=== PATIENT | male | born 1935 | race Caucasian/White ===

== ENCOUNTER 2018-02-06 09:59 | Emergency (ER) | payer MEDICARE, OTHER ==
[~2018-02-06] VITALS: Ht 180.3 cm; Wt 108.9 kg
[2018-02-06] MEDS ORDERED: NS IV 1000 ML 1,000 ML IV ONE (10:17)
[2018-02-06] MEDS ORDERED: ACETAMINOPHEN 500 MG TAB (TYLENOL) PO PRN (10:30)
[2018-02-06 10:31] LABS: BASOPHILS % (AUTO) 0 % (0-10); EOSINOPHILS % (AUTO) 0 % (0-10); HEMATOCRIT 46 % (40-54); HEMOGLOBIN 15.6 G/DL (13.3-17.7); LYMPHOCYTES # (AUTO) 0.4 X 10^3 (1.0-4.0); LYMPHOCYTES % (AUTO) 4 % (12-44); MEAN CORPUSCULAR HEMOGLOBIN 31 PG (25-34); MEAN CORPUSCULAR HGB CONC 34 G/DL (32-36); MEAN CORPUSCULAR VOLUME 92 FL (80-99); MONOCYTES # (AUTO) 0.6 X 10^3 (0.0-1.0); MONOCYTES % (AUTO) 6 % (0-12); NEUTROPHILS # (AUTO) 9.6 X 10^3 (1.8-7.8); NEUTROPHILS % (AUTO) 90 % (42-75); PLATELET COUNT 153 10^3/uL (130-400); RED BLOOD COUNT 4.99 10^6/uL (4.35-5.85); WHITE BLOOD COUNT 10.6 10^3/uL (4.3-11.0)
--- NOTE | 2018-02-06 10:43 | Diagnostic Imaging Report ---
INDICATION: Fever. COMPARISON: None. FINDINGS: Single view of the chest demonstrates cardiac enlargement with slight central vascular congestion. There is a fullness in the right infrahilar region. There is no focal infiltrate, effusion or pneumothorax. Osseous structures are normal. IMPRESSION: 1. Cardiac enlargement with slight central vascular congestion. 2. Right infrahilar fullness. Followup with two views or CT imaging recommended to exclude underlying mass. Dictated by: Dictated on workstation # [id number]
[2018-02-06 10:44] LABS: INR 1.9 (0.8-1.4); PROTHROMBIN TIME PATIENT 21.9 SEC (12.2-14.7)
[2018-02-06 10:55] LABS: ALANINE AMINOTRANSFERASE 22 U/L (0-55); ALBUMIN 3.9 GM/DL (3.2-4.5); ALKALINE PHOSPHATASE 63 U/L (40-136); BILIRUBIN,TOTAL 1.1 MG/DL (0.1-1.0); BUN/CREATININE RATIO 15; CALCIUM 9.2 MG/DL (8.5-10.1); CARBON DIOXIDE 26 MMOL/L (21-32); CHLORIDE 105 MMOL/L (98-107); CREATININE SERUM 0.81 MG/DL (0.60-1.30); GFR ESTIMATED > 60; GLUCOSE 120 MG/DL (70-105); SODIUM 140 MMOL/L (135-145); TOTAL PROTEIN 6.4 GM/DL (6.4-8.2)
--- NOTE | 2018-02-06 11:16 | ED General ---
General Chief Complaint: -Male Stated Complaint: MEDICATION REACTION Nursing Triage Note: ARRIVED VIA AMB TO ROOM 08 WITH MULTIPLE COMPLAINTS. TODAY SAYS HE HAS A FEVER , SHAKING, AND DOES NOT FEEL WELL. HAS BEEN IN AND OUT OF THE HOSPITAL ER IN [place] AND HAS HAD AN APPT WITH NATALIYA BECAUSE HE HAS BEEN HAVING TROUBLE URINATING. STATES HE HAD A MARCH IN BUT NATALIYA TOOK IT OUT WED. Nursing Sepsis Screen: Possible Sepsis Risk Source of Information: Patient Exam Limitations: No Limitations History of Present Illness Date Seen by Provider: Feb 06, 2018 Time Seen by Provider: 10:10 Initial Comments Here with report of fever, shaking, weakness and difficulty with urination. Apparently he has had March catheter placed and removed earlier this week for urinary retention problems. He has been started on new meds for that. Had shaking and weakness apparently intermittently over the last 2 days with increasing weakness and fever today. No problems with vomiting. Does have history of constipation due to his chronic medications bed has had large bowel movements in the last couple of days. There was some loose stool with the resolution of the constipation. Timing/Duration: 2-3 Days, Getting Worse Severity: Moderate, Severe Associated Systoms: No Chest Pain, No Cough; Fever/Chills; No Nausea/Vomiting, No Shortness of Air; Weakness Allergies and Home Medications Allergies Coded Allergies: pregabalin (Verified Allergy, Unknown, 02/06/18) Patient Home Medication List Home Medication List Reviewed: Yes Review of Systems Constitutional: see HPI; No chills, No fever EENTM: no symptoms reported Respiratory: no symptoms reported Cardiovascular: No chest pain, No edema, No palpitations Gastrointestinal: No abdominal pain; constipation; No nausea, No vomiting Genitourinary: dysuria, hesitancy Musculoskeletal: no symptoms reported Skin: no symptoms reported All Other Systems Reviewed Negative Unless Noted: Yes Past Xggvthu-Bsuwcb-Kdoyye Hx Past Med/Social Hx: Reviewed Nursing Past Med/Soc Hx Patient Social History Alcohol Use: Denies Use Recreational Drug Use: No Smoking Status: Never a Smoker Recent Foreign Travel: No Contact w/Someone Who Travel: No Recent Infectious Disease Expo: No Recent Hopitalizations: No Past Medical History Surgeries: Yes (HERNIA) Bowel Surgery Respiratory: No Cardiac: Yes Hypertension Genitourinary: Yes Prostate Problems Gastrointestinal: No Musculoskeletal: No Endocrine: Yes (HYPOGLYCEMIA) Cancer: No Psychosocial: No Family Medical History Reviewed Nursing Family Hx Physical Exam-Suspected Sepsis Physical Exam Vital Signs Vital Signs - First Documented 02/06/18 10:00 Temp 101.0 Pulse 109 Resp 16 B/P (MAP) 136/96 (109) Pulse Ox 91 O2 Delivery Room Air Capillary Refill : Less Than 3 Seconds Blood Pressure Mean: 109 Height, Weight, BMI Height: 5'11.00" Weight: 240lbs. oz. 108.173613id; BMI Method:Stated General Appearance: No Apparent Distress, WD/WN HEENT: PERRL/EOMI, Pharynx Normal Neck: Non Tender, Supple Respiratory: Lungs Clear, Normal Breath Sounds Cardiovascular: No Murmur, Tachycardia Gastrointestinal: Non Tender, Soft Back: Normal Inspection, No CVA Tenderness, No Vertebral Tenderness Extremity: Normal Capillary Refill, Normal Range of Motion, Non Tender Neurologic/Psychiatric: Alert, Oriented x3 Skin: normal color, warm/dry Focused Exam Lactate Level 02/06/18 10:13: Lactic Acid Level 1.01 Lactic Acid Level Progress/Results/Core Measures Suspected Sepsis Recent Fever Within 48 Hours: Yes Infection Criteria Present: Suspected New Infection New/Unexplained Altered Menta: No Sepsis Screen: Possible Sepsis Risk SIRS Temperature:101.0 Pulse: 109 Respiratory Rate: 16 Laboratory Tests 02/06/18 10:13: White Blood Count 10.6 Blood Pressure 136 /96 Mean: 109 02/06/18 10:13: Lactic Acid Level 1.01 Laboratory Tests 02/06/18 10:13: Creatinine 0.81, INR Comment 1.9H, Platelet Count 153, Total Bilirubin 1.1H Results/Orders Lab Results Laboratory Tests Test 02/06/18 10:13 02/06/18 13:10 Range/Units White Blood Count 10.6 4.3-11.0 10^3/uL Red Blood Count 4.99 4.35-5.85 10^6/uL Hemoglobin 15.6 13.3-17.7 G/DL Hematocrit 46 40-54 % Mean Corpuscular Volume 92 80-99 FL Mean Corpuscular Hemoglobin 31 25-34 PG Mean Corpuscular Hemoglobin Concent 34 32-36 G/DL Red Cell Distribution Width 14.0 10.0-14.5 % Platelet Count 153 130-400 10^3/uL Mean Platelet Volume 11.0 H 7.4-10.4 FL Neutrophils (%) (Auto) 90 H 42-75 % Lymphocytes (%) (Auto) 4 L 12-44 % Monocytes (%) (Auto) 6 0-12 % Eosinophils (%) (Auto) 0 0-10 % Basophils (%) (Auto) 0 0-10 % Neutrophils # (Auto) 9.6 H 1.8-7.8 X 10^3 Lymphocytes # (Auto) 0.4 L 1.0-4.0 X 10^3 Monocytes # (Auto) 0.6 0.0-1.0 X 10^3 Eosinophils # (Auto) 0.0 0.0-0.3 10^3/uL Basophils # (Auto) 0.0 0.0-0.1 10^3/uL Neutrophils % (Manual) 94 % Lymphocytes % (Manual) 2 % Monocytes % (Manual) 4 % Blood Morphology Comment NORMAL Prothrombin Time 21.9 H 12.2-14.7 SEC INR Comment 1.9 H 0.8-1.4 Activated Partial Thromboplast Time 40 H 24-35 SEC Sodium Level 140 135-145 MMOL/L Potassium Level 4.0 3.6-5.0 MMOL/L Chloride Level 105 98-107 MMOL/L Carbon Dioxide Level 26 21-32 MMOL/L Anion Gap 9 5-14 MMOL/L Blood Urea Nitrogen 12 7-18 MG/DL Creatinine 0.81 0.60-1.30 MG/DL Estimat Glomerular Filtration Rate > 60 BUN/Creatinine Ratio 15 Glucose Level 120 H 70-105 MG/DL Lactic Acid Level 1.01 0.50-2.00 MMOL/L Calcium Level 9.2 8.5-10.1 MG/DL Corrected Calcium 9.3 8.5-10.1 MG/DL Total Bilirubin 1.1 H 0.1-1.0 MG/DL Aspartate Amino Transf (AST/SGOT) 22 5-34 U/L Alanine Aminotransferase (ALT/SGPT) 22 0-55 U/L Alkaline Phosphatase 63 40-136 U/L Total Protein 6.4 6.4-8.2 GM/DL Albumin 3.9 3.2-4.5 GM/DL Urine Color YELLOW Urine Clarity SLIGHTLY CLOUDY Urine pH 5 5-9 Urine Specific Peak 1.015 L 1.016-1.022 Urine Protein 2+ H NEGATIVE Urine Glucose (UA) NEGATIVE NEGATIVE Urine Ketones 3+ H NEGATIVE Urine Nitrite NEGATIVE NEGATIVE Urine Bilirubin NEGATIVE NEGATIVE Urine Urobilinogen NORMAL NORMAL MG/DL Urine Leukocyte Esterase 1+ H NEGATIVE Urine RBC (Auto) 3+ H NEGATIVE Urine RBC NONE /HPF Urine WBC 2-5 /HPF Urine Crystals PRESENT H /LPF Urine Amorphous Sediment RARE ROSEY URATES H /LPF Urine Bacteria NEGATIVE /HPF Urine Casts NONE /LPF Urine Mucus NEGATIVE /LPF Urine Culture Indicated NO My Orders Orders - BRIDGER GORMAN MD Cbc With Automated Diff (02/06/18 10:17) Comprehensive Metabolic Panel (02/06/18 10:17) Blood Culture (02/06/18 10:17) Sputum Culture (02/06/18 10:17) Urinalysis (02/06/18 10:17) Urine Culture (02/06/18 10:17) Protime With Inr (02/06/18 10:17) Partial Thromboplastin Time (02/06/18 10:17) Chest 1 View, Ap/Pa Only (02/06/18 10:17) Acetaminophen Tablet (Tylenol Tablet) (02/06/18 10:30) Saline Lock/Iv-Start (02/06/18 10:17) Saline Lock/Iv-Start (02/06/18 10:17) Vital Signs Adult Sepsis Patie Q15M (02/06/18 10:17) O2 (02/06/18 10:17) Remove Rings In Anticipation O (02/06/18 10:17) Lactic Acid Analyzer (02/06/18 10:17) Saline Lock/Iv-Start (02/06/18 10:17) Ns Iv 1000 Ml (Sodium Chloride 0.9%) (02/06/18 10:17) Manual Differential (02/06/18 10:13) Ct Chest W (02/06/18 11:09) Iohexol Injection (Omnipaque 350 Mg/Ml 1 (02/06/18 11:45) Ns (Ivpb) (Sodium Chloride 0.9% Ivpb Bag (02/06/18 11:45) Lidocaine 2% (Urojet) (Xylocaine Urojet) (02/06/18 13:15) Lidocaine 2% (Urojet) (Xylocaine Urojet) (02/06/18 13:01) Ceftriaxone Injection (Rocephin Injectio (02/06/18 14:15) Medications Given in ED Current Medications Medications Dose Ordered Sig/Pavan Route Start Time Stop Time Status Last Admin Dose Admin Acetaminophen 1,000 mg ONCE PRN PO 02/06/18 10:30 02/06/18 10:40 DC 02/06/18 10:39 1,000 MG Iohexol 100 ml ONCE ONCE IV 02/06/18 11:45 02/06/18 11:47 DC 02/06/18 12:12 75 ML Lidocaine HCl 10 ml ONCE ONCE TOP 02/06/18 13:15 02/06/18 13:16 DC 02/06/18 13:00 10 ML Sodium Chloride 100 ml ONCE ONCE IV 02/06/18 11:45 02/06/18 11:47 DC 02/06/18 12:12 100 ML Sodium Chloride 1,000 ml @ 0 mls/hr Q0M ONCE IV 02/06/18 10:17 02/06/18 10:19 DC 02/06/18 10:39 1,000 MLS/HR Vital Signs/I&O 02/06/18 10:00 Temp 101.0 Pulse 109 Resp 16 B/P (MAP) 136/96 (109) Pulse Ox 91 O2 Delivery Room Air Capillary Refill : Less Than 3 Seconds Blood Pressure Mean: 109 Progress Note : Progress Note Seen and evaluated. IV, labs, UA, blood cultures and lactic acid ordered. Chest x-ray ordered. Normal saline 1 L bolus and acetaminophen 1000 mg by mouth ordered. Monitor patient. 1115: Chest x-ray shows right infrahilar fullness concerning for mass. CT scan of the chest ordered. Patient informed and agrees. Monitor patient. 1330: Patient was unable to urinate for quite some time. March catheter placed and UA sent. 1424: Patient is afebrile and has been for some time. Overall feeling better. UA resulted and does not show significant urinary tract infection. Due to fever and recent instrumentation, I 'm still suspicious of the possibility of underlying urinary tract infection so we will go ahead and give Rocephin 1 g IV. I'm also concerned about interaction with ciprofloxacin. We will stop that and continue outpatient treatment with Omnicef. All of findings and concerns were discussed with the patient and family who agree. Discharged home with return precautions. Patient family verbalized understanding instructions and agreement with plan. Diagnostic Imaging Diagonstic Imaging: Xray Plain Films/CT/US/NM/MRI: chest Comments VIA [facility] [place], [place] NAME: CLARISSE BROWN [facility] REC#: [id number] PT STATUS: REG ER : 1935 PHYSICIAN: BRIDGER GORMAN MD ADMIT DATE: 02/06/18/ER Draft Date of Exam:02/06/18 CHEST 1 VIEW, AP/PA ONLY INDICATION: Fever. COMPARISON: None. FINDINGS: Single view of the chest demonstrates cardiac enlargement with slight central vascular congestion. There is a fullness in the right infrahilar region. There is no focal infiltrate, effusion or pneumothorax. Osseous structures are normal. IMPRESSION: 1. Cardiac enlargement with slight central vascular congestion. 2. Right infrahilar fullness. Followup with two views or CT imaging recommended to exclude underlying mass. Dictated on workstation # [id number] Dict: 02/06/18 [facility] Trans: 02/06/18 104[facility] [id number] Interpreted by: MAXIMO DISLA Electronically signed by: Reviewed: Reviewed by Me Diagonstic Imaging: CT Plain Films/CT/US/NM/MRI: chest Comments NAME: CLARISSE BROWN [facility] REC#: [id number] PT STATUS: REG ER : 1935 PHYSICIAN: BRIDGER GORMAN MD ADMIT DATE: 02/06/18/ER Signed Date of Exam: 02/06/18 CT CHEST W PROCEDURE: CT chest with contrast only. TECHNIQUE: Multiple contiguous axial images were obtained through the chest after administration of intravenous contrast. INDICATION: Sepsis, questionable mass. COMPARISON: Chest x-ray same day Findings: The heart is mildly enlarged without pericardial effusion. There is no lymphadenopathy. Questionable mass in the right infrahilar region is normal superimposed bronchovascular structures. The central airways normal. There is dependent atelectasis in both bases. No large effusion is seen. There is no pneumothorax. Osseous structures are age-appropriate. Visualized upper abdominal solid organs demonstrate liver and left renal cyst. Impression: 1. No lung or mediastinal mass identified. 2. Cardiac enlargement without pulmonary edema. 3. Bibasilar atelectasis. Dictated by: Dictated on workstation # [id number] Dict: 02/06/18 1223 Trans: 02/06/18 1242 Interpreted by: MAXIMO DISLA Electronically signed by: MAXIMO DISLA 02/06/18 1242 Departure Impression Primary Impression: Urinary retention Additional Impression: Urinary tract infection Qualified Codes: N30.00 - Acute cystitis without hematuria Disposition: HOME, SELF-CARE Condition: Stable Departure-Patient Inst. Decision time for Depature: 14:27 Referrals: NO,LOCAL PHYSICIAN (PCP) Primary Care Physician JOSEPH AN MD Patient Instructions: March Catheter, Male, Urinary Retention (DC), Urinary Tract Infection, Adult (DC) Add. Discharge Instructions: All discharge instructions reviewed with patient and/or family. Voiced understanding. Call Dr. An's office in the morning for an update and to inform them of the placement of the March catheter. Take medications as directed. Stop taking ciprofloxacin. Follow-up with your DrGlen in a few days for recheck. Return for worsening, fever, vomiting, weakness, breathing problems or other concerns as needed. Drink plenty of fluids. Scripts Cefdinir (Cefdinir) 300 Mg Capsule 300 MG PO BID, #14 CAP 0 Refills Prov: BRIDGER GORMAN MD 02/06/18 BRIDGER GORMAN MD Feb 06, 2018 11:16
[2018-02-06 11:37] LABS: LYMPHOCYTES % (MANUAL) 2 %; MONOCYTES % (MANUAL) 4 %; NEUTROPHILS % (MANUAL) 94 %; RBC MORPH NORMAL
[2018-02-06] MEDS ORDERED: IOHEXOL 350 MG/ML 100 ML (OMNIPAQUE 350) VIAL IV ONE (11:45)
[2018-02-06] MEDS ORDERED: NS 100 ML (IVPB) BAG IV ONE (11:45)
--- NOTE | 2018-02-06 12:33 | Diagnostic Imaging Report ---
PROCEDURE: CT chest with contrast only. TECHNIQUE: Multiple contiguous axial images were obtained through the chest after administration of intravenous contrast. INDICATION: Sepsis, questionable mass. COMPARISON: Chest x-ray same day Findings: The heart is mildly enlarged without pericardial effusion. There is no lymphadenopathy. Questionable mass in the right infrahilar region is normal superimposed bronchovascular structures. The central airways normal. There is dependent atelectasis in both bases. No large effusion is seen. There is no pneumothorax. Osseous structures are age-appropriate. Visualized upper abdominal solid organs demonstrate liver and left renal cyst. Impression: 1. No lung or mediastinal mass identified. 2. Cardiac enlargement without pulmonary edema. 3. Bibasilar atelectasis. Dictated by: Dictated on workstation # [id number]
[2018-02-06] MEDS ORDERED: LIDOCAINE UROJET 2% GEL 10 ML PKG ONE (13:01)
[2018-02-06] MEDS ORDERED: LIDOCAINE UROJET 2% GEL 10 ML PKG TOP ONE (13:15)
[2018-02-06 13:23] LABS: BILIRUBIN,URINE NEGATIVE (NEGATIVE); CLARITY,URINE SLIGHTLY CLOUDY; COLOR,URINE YELLOW; GLUCOSE, URINE (UA) NEGATIVE (NEGATIVE); KETONES,URINE 3+ (NEGATIVE); LEUKOCYTE ESTERASE ,URINE 1+ (NEGATIVE); NITRITE,URINE NEGATIVE (NEGATIVE); PH,URINE 5 (5-9); PROTEIN,URINE 2+ (NEGATIVE); UROBILINOGEN,URINE NORMAL (NORMAL)
[2018-02-06 13:45] LABS: AMORPHOUS SEDIMENT,UR RARE AMOR URATES /LPF; BACTERIA,URINE NEGATIVE /HPF
[2018-02-06] MEDS ORDERED: cefTRIAXone INJECTION 1,000 MG in NS (IVPB) 50 ML IV ONE (14:15)
[2018-02-06] MEDS ORDERED: CEFD300C3 PO (14:30)
[2018-02-06 15:16] VITALS: BP 129/82
== END 2018-02-06 15:16 | disposition home or self-care (01) ==
LOC: ER 10:01
DX: N39.0 Urinary tract infection, site not specified (principal); I10 Essential (primary) hypertension; Z88.8 Allergy status to other drugs, medicaments and biological substances; Z87.19 Personal history of other diseases of the digestive system
CPT/HCPCS: 36415; 51702; 71045; 71260; 80053; 81000; 83605; 85007; 85027; 85610; 85730; 87040; 87088

== ENCOUNTER → 2021-05-14 | Outpatient (CLI) | payer MEDICARE ==
[~2021-05-14] MED LIST: CEFD300C3 PO
--- NOTE | 2021-05-14 17:44 | Diagnostic Imaging Report ---
Clinical indication: Patient is status post fall on Eliquis and arachnoid cyst seen on CT. Exam: MRI of the brain performed without IV contrast. Sequences include axial DWI, ADC map, axial gradient echo, axial T2, axial FLAIR, axial T1, and sagittal T1. Comparison: None. Findings: There is an arachnoid cyst in the left middle cranial fossa which displaces the left temporal lobe posteriorly. This arachnoid cyst measures 3.7 cm x 4.7 cm in greatest axial dimension and grossly 3.1 cm in craniocaudal dimensions. There is no evidence of acute cerebral infarct, intracranial hemorrhage or other gross mass effect. There is brain parenchymal volume loss seen. There is multiple focal, patchy and mildly confluent areas involving both cerebral hemispheres and periventricular regions, likely representing chronic small vessel ischemic disease and leukoaraiosis. There is normal da silva-white matter distinction. There is no significant midline shift or herniation. There is no evidence of hydrocephalus. The basal cisterns are unremarkable. There are postoperative changes to both globes which may be related to lens implants. The skull, extracranial soft tissue and orbits are unremarkable. There is mild ethmoid sinus mucosal thickening. Temporal bones show no significant abnormality. Impression: 1: There is no evidence of acute intracranial process. There is no evidence of intracranial hemorrhage. 2: Age related brain parenchymal changes including chronic small vessel ischemic disease and leukoaraiosis. 3: There is an arachnoid cyst in the left middle cranial fossa. Dictated by: Dictated on workstation # [id number]
== END ==
LOC: RAD 15:30
PROVIDERS: ATTEND Family Medicine
DX: G93.0 Cerebral cysts (principal); I67.81 Acute cerebrovascular insufficiency; I67.82 Cerebral ischemia; Z79.01 Long term (current) use of anticoagulants
CPT/HCPCS: 70551

== ENCOUNTER 2021-12-20 14:26 | Inpatient (IN) | payer MEDICARE ==
[~2021-12-20] VITALS: Ht 182.9 cm; Wt 109.2 kg
[2021-12-20] MEDS ORDERED: diphenhydrAMINE 50 MG/ML INJ (BENADRYL) IVP PRN (16:30)
[2021-12-20] MEDS ORDERED: diphenhydrAMINE 25 MG TAB (BENADRYL) PO PRN (16:30)
[2021-12-20] MEDS ORDERED: ACETAMINOPHEN 325 MG TABLET PO PRN (16:30)
[2021-12-20] MEDS ORDERED: ALPRAZolam 0.25 MG (XANAX) TAB PO PRN (16:30)
[2021-12-20] MEDS ORDERED: ANTACID SUSP 30 ML UDC (MYLANTA) PO PRN (16:30)
[2021-12-20] MEDS ORDERED: MILK OF MAGNESIA 400 MG/5 ML 30 ML UDC PO PRN (16:30)
[2021-12-20] MEDS ORDERED: ONDANSETRON 4 MG/2 ML (SDV) Z0FRAN IV PRN (16:30)
[2021-12-20] MEDS ORDERED: polyethylene glycoL POWDER 17 GM (MIRALAX) PACK PO PRN (16:30)
[2021-12-20] MEDS ORDERED: LACTULOSE SYRUP 10GM/15ML (ENULOSE) 30ML UDC PO PRN (16:30)
[2021-12-20] MEDS ORDERED: ONDANSETRON 4 MG (ZOFRAN) ORAL DISSOLVE TAB PO PRN (16:30)
[2021-12-20] MEDS ORDERED: BISACODYL 10 MG SUPP (DULCOLAX) PR PRN (16:30)
[2021-12-20] MEDS ORDERED: CALCIUM CARBONATE 500 MG (TUMS) TAB.CHEW PO PRN (16:30)
[2021-12-20 17:40] LABS: ABG BASE EXCESS 4.6 MMOL/L (-2.5-2.5); ABG OXYGEN SATURATION 98 % (94-100); ABG PCO2 64 MMHG (35-45); ABG PO2 95 MMHG (79-93); ABG TCO2 32.5 MMOL/L (21.0-31.0)
[2021-12-20 17:41] LABS: ALLENS TEST YES-POS; INSPIRED O2 10 L; VENTILATOR NO
[2021-12-20 17:42] LABS: PATIENT TEMP 37.1
[2021-12-20 18:43] VITALS: BP 126/111
[2021-12-20 19:30] VITALS: BP 101/70
[2021-12-20] MEDS: MELATONIN 3 MG TABLET PO PRN (20:13)
[2021-12-20] MEDS: DOCUSATE SODIUM 100 MG (COLACE) CAP PO SCH (20:13)
[2021-12-20] MEDS: SENNOSIDES 8.6 MG (SENOKOT) TAB PO SCH (20:14)
[2021-12-20 22:22] VITALS: BP 100/82
[2021-12-21] VITALS (11 sets, daily range): BP systolic 100–139; BP diastolic 68–97
[2021-12-21 06:29] LABS: BASOPHILS % (AUTO) 0 % (0-10); EOSINOPHILS # (AUTO) 0.1 10^3/uL (0.0-0.3); EOSINOPHILS % (AUTO) 1 % (0-10); HEMATOCRIT 41 % (40-54); HEMOGLOBIN 13.4 g/dL (13.3-17.7); LYMPHOCYTES # (AUTO) 0.9 10^3/uL (1.0-4.0); LYMPHOCYTES % (AUTO) 8 % (12-44); MEAN CORPUSCULAR HEMOGLOBIN 32 pg (25-34); MEAN CORPUSCULAR HGB CONC 33 g/dL (32-36); MEAN CORPUSCULAR VOLUME 98 fL (80-99); MEAN PLATELET VOLUME 11.2 fL (9.0-12.2); MONOCYTES # (AUTO) 1.4 10^3/uL (0.0-1.0); MONOCYTES % (AUTO) 13 % (0-12); NEUTROPHILS # (AUTO) 8.1 10^3/uL (1.8-7.8); NEUTROPHILS % (AUTO) 77 % (42-75); PLATELET COUNT 143 10^3/uL (130-400); WHITE BLOOD COUNT 10.5 10^3/uL (4.3-11.0)
[2021-12-21 06:58] LABS: ALBUMIN 3.5 GM/DL (3.2-4.5); POTASSIUM 3.8 MMOL/L (3.6-5.0)
[2021-12-21 06:59] LABS: CALCIUM 8.4 MG/DL (8.5-10.1)
[2021-12-21 07:00] LABS: TOTAL PROTEIN 5.5 GM/DL (6.4-8.2)
[2021-12-21 07:02] LABS: BILIRUBIN,TOTAL 1.2 MG/DL (0.1-1.0)
[2021-12-21 07:04] LABS: CREATININE SERUM 0.89 MG/DL (0.60-1.30)
--- NOTE | 2021-12-21 07:17 | History & Physical-Hospitalist ---
History of Present Illness HPI/Chief Complaint Chief complaint: Shortness of breath with confusion History of present illness: This is an 85-year-old male clinic patient of [facility] who I assessed at [facility] ER and transferred to [facility] to higher level of care due to BiPAP requirement. Patient has dementia and has had significant problems since falling and suffering a large laceration requiring Dr. Simon repair the day before presenting back to [facility] ER with severe weakness. Upon further questioning he does have a history of dementia and he has had a decline in overall function for the past year once he acquired a brown recluse spider bite last summer then recently had the first of the year had a scalp skin cancer requiring a great deal of medication who required BiPAP due to respiratory acidosis and CO2 retention. at the bedside updated on the plan he was placed on Rocephin for UTI and we will monitor him closely and consult cardiology. Source: patient, family, RN/MD, old records Date Seen 12/21/21 Time Seen by a Provider: 10:30 Attending Physician Garth King MD PCP Admitting Physician: Allison Hughes DO Attending Physician: Allison Hughes DO Referring Physician Date of Admission Dec 20, 2021 at 16:14 Home Medications & Allergies Home Medications Reviewed patient Home Medication Reconciliation performed by pharmacy medication reconciliations certified technician specialist and/or nursing. Patients Allergies have been reviewed. Allergies Allergies Coded Allergies pregabalin (Verified Allergy, Unknown, 02/06/18) Past Nevedxv-Txcmna-Kggwka Hx Patient Social History Marrital Status: Employed/Student: retired Tobacco Use?: No Smoking Status: Never a Smoker Use of E-Cig and/or Vaping dev: No Substance use?: No Alcohol Use?: No Pt feels they are or have been: No Current Status Advance Directives: No Communicates: Verbally Primary Language: Marshallese Preferred Spoken Language: Marshallese Is interpretation needed?: No Sensory deficits: Vision impairment Implanted or Applied Medical D: None Past Medical History Surgeries: Bowel Surgery Hypertension Dementia Prostate Problems Review of Systems Constitutional: see HPI, malaise, weakness EENTM: no symptoms reported Respiratory: no symptoms reported Cardiovascular: no symptoms reported Gastrointestinal: no symptoms reported Genitourinary: no symptoms reported Musculoskeletal: no symptoms reported Psychiatric/Neurological: Other (confusion) Physical Exam Physical Exam Vital Signs Vital Signs - First Documented 612/20/21 12/20/21 12/20/21 12/20/21 16:20 16:39 18:43 19:30 20:32 Temp 36.5 Pulse 70 Resp 19 B/P (MAP) 101/70 (80) Pulse Ox 98 O2 Delivery Nasal Cannula O2 Flow Rate 8.00 FiO2 30 Capillary Refill : Height, Weight, BMI Height: 5'11.00" Weight: 240lbs. oz. 108.084211mu; 33.15 BMI Method:Stated General Appearance: No Apparent Distress, Chronically ill, Obese Eyes: Right Eye Normal Inspection, Right Eye PERRL HEENT: PERRL/EOMI, Normal ENT Inspection, Pharynx Normal, Moist Mucous Membranes Neck: Full Range of Motion, Normal Inspection, Non Tender Respiratory: Chest Non Tender, Lungs Clear, Normal Breath Sounds, No Accessory Muscle Use, No Respiratory Distress Cardiovascular: Regular Rate, Rhythm, No Edema, No Gallop, No JVD, No Murmur, Normal Peripheral Pulses Gastrointestinal: Normal Bowel Sounds, No Organomegaly, No Pulsatile Mass, Non Tender, Soft Back: Normal Inspection, No CVA Tenderness, No Vertebral Tenderness Extremity: Normal Capillary Refill, Normal Inspection, Normal Range of Motion, Non Tender, No Calf Tenderness, No Pedal Edema Neurologic/Psychiatric: Alert, Oriented x3, No Motor/Sensory Deficits, Normal Mood/Affect, Other (poor recall) Skin: Normal Color, Warm/Dry Lymphatic: No Adenopathy Results Results/Procedures Labs Laboratory Tests 12/21/21 05:59 Patient resulted labs reviewed. Assessment/Plan Admission Diagnosis Assessment: Acute respiratory insufficiency CO2 retention Right arm laceration Presumed ERICA/OHA Dementia Delirium AF Pneumonia Plan: BiPAP Monitor closely Cardiology appreciated Hold OAC Abx Admission Status: Inpatient Order (span 2 midnights) Reason for Inpatient Admission: AMS with CO2 retention Diagnosis/Problems Diagnosis/Problems (1) AMS (altered mental status) (2) Dementia (3) CO2 retention Clinical Quality Measures DVT/VTE Risk/Contraindication: Contraindications-Pharm: Pt at low risk Other: right arm laceration bleed ALLISON HUGHES DO Dec 21, 2021 07:17
--- NOTE | 2021-12-21 08:39 | Diagnostic Imaging Report ---
INDICATION: Dyspnea. COMPARISON: 02/06/2018. FINDINGS: Enlargement of the cardiac silhouette is similar in configuration but mildly improved from the prior exam. No overt vascular congestion and no findings of edema or focal pneumonia. There is some subsegmental medial left basilar atelectasis. IMPRESSION: Enlargement of the cardiac silhouette but no overt failure pattern. Slight medial left basilar atelectasis. The lungs are otherwise clear with no acute pleural pathology. Dictated by: Dictated on workstation # [id number]
[2021-12-21] MEDS ORDERED: cefTRIAXone 1 GM PRE-MIX 50 ML IV SCH (09:00)
[2021-12-21] MEDS: DOCUSATE SODIUM 100 MG (COLACE) CAP PO SCH ×2 (09:40→21:40)
[2021-12-21] MEDS: SENNOSIDES 8.6 MG (SENOKOT) TAB PO SCH ×2 (09:40→21:40)
--- NOTE | 2021-12-21 10:01 | Consultation-Cardiology ---
HPI-Cardiology Cardiology Consultation Date of Consultation 12/21/21 Date of Admission Time Seen by Provider: 09:55 Indication: Atrial fibrillation HPI 85 years old gentleman with history of atrial fibrillation, hypertension and hyperlipidemia and obesity. Patient sustained a fall 2 days ago resulted in laceration of his right arm, had significant bleeding. He was scheduled to see Dr. Simon as an outpatient. He became more weak and lethargic, unable to stand up on his own. He denied any chest pain.Currently was on BiPAP, changed to nasal cannula. Reporting that he is feeling better. Laying comfortably in bed, reporting pedal edema on and off. Using compression socks. Does not follow-up with a addictions counselor. Has been managed by his primary care physician Home Medications & Allergies Allergies: Coded Allergies: pregabalin (Verified Allergy, Unknown, 02/06/18) Home Medication List Reviewed: Yes IOV-[id number]-[id number] Hx Patient Social History Marital Status: Employed/Student: retired Smoking Status: Never a Smoker Recent Hopitalizations: No Have you traveled recently?: No Alcohol Use?: No Past Medical History Discussed below Family Medical History Family Medical Hx Noncontributory Review of Systems-General Review of Systems Constitutional: see HPI, malaise, weakness EENTM: see HPI, no symptoms reported Respiratory: see HPI; No cough; dyspnea on exertion; No hemoptysis, No orthopnea, No phlegm, No short of breath, No stridor, No wheezing, No other Cardiovascular: see HPI; No chest pain; edema; No Hx of Intervention, No palpitations, No syncope, No vascular heart diseas, No other Gastrointestinal: no symptoms reported, see HPI Genitourinary: no symptoms reported, see HPI Musculoskeletal: see HPI, joint pain Skin: see HPI, other (Laceration and bruising on the right arm) Psychiatric/Neurological: No Symptoms Reported, See HPI Reviewed Test Results Reviewed Test Results Lab Laboratory Tests Test 12/20/21 17:30 12/21/21 05:59 Range/Units Blood Gas Puncture Site LT RAD Blood Gas Patient Temperature 37.1 Arterial Blood pH 7.30 *L 7.37-7.43 Arterial Blood Partial Pressure CO2 64 H 35-45 MMHG Arterial Blood Partial Pressure O2 95 H 79-93 MMHG Arterial Blood HCO3 31 H 23-27 MMOL/L Arterial Blood Total CO2 32.5 H 21.0-31.0 MMOL/L Arterial Blood Oxygen Saturation 98 94-100 % Arterial Blood Base Excess 4.6 H -2.5-2.5 MMOL/L Constantino Test YES-POS Blood Gas Ventilator Setting NO Blood Gas Inspired Oxygen 10 L White Blood Count 10.5 4.3-11.0 10^3/uL Red Blood Count 4.14 L 4.30-5.52 10^6/uL Hemoglobin 13.4 13.3-17.7 g/dL Hematocrit 41 40-54 % Mean Corpuscular Volume 98 80-99 fL Mean Corpuscular Hemoglobin 32 25-34 pg Mean Corpuscular Hemoglobin Concent 33 32-36 g/dL Red Cell Distribution Width 13.4 10.0-14.5 % Platelet Count 143 130-400 10^3/uL Mean Platelet Volume 11.2 9.0-12.2 fL Immature Granulocyte % (Auto) 1 % Neutrophils (%) (Auto) 77 H 42-75 % Lymphocytes (%) (Auto) 8 L 12-44 % Monocytes (%) (Auto) 13 H 0-12 % Eosinophils (%) (Auto) 1 0-10 % Basophils (%) (Auto) 0 0-10 % Neutrophils # (Auto) 8.1 H 1.8-7.8 10^3/uL Lymphocytes # (Auto) 0.9 L 1.0-4.0 10^3/uL Monocytes # (Auto) 1.4 H 0.0-1.0 10^3/uL Eosinophils # (Auto) 0.1 0.0-0.3 10^3/uL Basophils # (Auto) 0.0 0.0-0.1 10^3/uL Immature Granulocyte # (Auto) 0.1 0.0-0.1 10^3/uL Sodium Level 144 135-145 MMOL/L Potassium Level 3.8 3.6-5.0 MMOL/L Chloride Level 106 98-107 MMOL/L Carbon Dioxide Level 28 21-32 MMOL/L Anion Gap 10 5-14 MMOL/L Blood Urea Nitrogen 17 7-18 MG/DL Creatinine 0.89 0.60-1.30 MG/DL Estimat Glomerular Filtration Rate 85 BUN/Creatinine Ratio 19 Glucose Level 116 H 70-105 MG/DL Calcium Level 8.4 L 8.5-10.1 MG/DL Corrected Calcium 8.8 8.5-10.1 MG/DL Total Bilirubin 1.2 H 0.1-1.0 MG/DL Aspartate Amino Transf (AST/SGOT) 14 5-34 U/L Alanine Aminotransferase (ALT/SGPT) 10 0-55 U/L Alkaline Phosphatase 56 40-136 U/L Total Protein 5.5 L 6.4-8.2 GM/DL Albumin 3.5 3.2-4.5 GM/DL Physical Exam Physical Exam Vital Signs Vital Signs - First Documented 12/20/21 12/20/21 12/20/21 12/20/21 12/20/21 16:20 16:39 18:43 19:30 20:32 Temp 36.5 Pulse 70 Resp 19 B/P (MAP) 101/70 (80) Pulse Ox 98 O2 Delivery Nasal Cannula O2 Flow Rate 8.00 FiO2 30 Capillary Refill : Height, Weight, BMI Height: 5'11.00" Weight: 240lbs. oz. 108.208400ic; 33.15 BMI Method:Stated General Appearance: No Apparent Distress, WD/WN Eyes: Bilateral Eye Normal Inspection, Bilateral Eye PERRL, Bilateral Eye EOMI HEENT: PERRL/EOMI, TMs Normal, Normal ENT Inspection, Pharynx Normal, Moist Mucous Membranes Neck: Full Range of Motion, Normal Inspection, Non Tender, Supple, Carotid Bruit Respiratory: Chest Non Tender, Normal Breath Sounds, No Accessory Muscle Use, No Respiratory Distress Cardiovascular: No Edema, No Gallop, No JVD, No Murmur, Normal Peripheral Pulses, Irregularly Irregular Gastrointestinal: Normal Bowel Sounds, No Organomegaly, No Pulsatile Mass, Non Tender, Soft Back: Normal Inspection, No CVA Tenderness, No Vertebral Tenderness Extremity: Normal Capillary Refill, Normal Inspection, Normal Range of Motion, Non Tender, No Calf Tenderness, No Pedal Edema Neurologic/Psychiatric: Alert, Oriented x3, No Motor/Sensory Deficits, Normal Mood/Affect Skin: Normal Color, Warm/Dry Lymphatic: No Adenopathy A/P-Cardiology Admission Diagnosis Generalized weakness Atrial fibrillation Hypertension Hyperlipidemia Assessment/Plan Generalized weakness, multiple falls. Unable to support himself. Consider physical therapy. Managed by primary care physician Persistent/probably permanent atrial fibrillation. Rate is controlled. Restart home medication and monitor blood pressure [id number] score 3, has been maintained on Eliquis. It has been on hold since December 19, 2021 secondary to bleeding and laceration on his right arm. Hypertension, was on lisinopril 20 mg daily and amlodipine 10 mg daily. I will restart lisinopril and hold amlodipine for now and monitor tolerance and response Peripheral edema, has been maintained on Lasix, I am holding it, currently does not have any significant edema. I will evaluate 2D echo, continue to monitor blood pressure Hyperlipidemia, has been on Zetia 10 mg daily, hold for now and evaluate lipid profile Benign prostatic hypertrophy, maintained on tamsulosin which will be restarted Shortness of breath, patient was on BiPAP, trying to wean him down to nasal cannula. Obesity, BMI 33. Clinical Quality Measures DVT/VTE Risk/Contraindication: Contraindications-Pharm: Pt at low risk Other: right arm laceration bleed ALEXANDER MERA MD Dec 21, 2021 10:01
[2021-12-21] MEDS: lisINopril 20 MG (PRINIVIL) TABLET PO SCH (10:53)
--- NOTE | 2021-12-21 11:08 | Progress Note - Hospitalist ---
Subjective HPI/CC On Admission Date Seen by Provider: Dec 21, 2021 Time Seen by Provider: 11:00 Subjective/Events-last exam Patient doing a bit better Repeat ABG reviewed BiPAP all night he tolerated that pretty well Patient handling everything pretty well but very poor recall he can tell he has a decline in cognition Check meds and labs Maintain on nasal cannula oxygen Review of Systems General: Fatigue Musculoskeletal: arm pain Neurological: Confusion Objective Exam Vital Signs Vital Signs Date Time Temp Pulse Resp B/P (MAP) Pulse Ox O2 Delivery O2 Flow Rate FiO2 12/22/21 04:00 36.5 12/22/21 04:00 77 147/85 (94) 100 NIV Bilevel 35.00 12/22/21 02:47 20 12/21/21 04:32 30 Capillary Refill : General Appearance: No Apparent Distress, WD/WN, Chronically ill, Obese Respiratory: Lungs Clear, Normal Breath Sounds Cardiovascular: Regular Rate, Rhythm Neurologic/Psychiatric: Alert, Disoriented Results/Procedures Lab Laboratory Tests 12/22/21 05:12 Patient resulted labs reviewed. Assessment/Plan Assessment and Plan Assess & Plan/Chief Complaint Assessment: Acute respiratory insufficiency CO2 retention Right arm laceration Presumed ERICA/OHA Dementia Delirium AF Pneumonia Plan: BiPAP Monitor closely Cardiology appreciated Hold OAC Abx Clinical Quality Measures DVT/VTE Risk/Contraindication: Contraindications-Pharm: Pt at low risk Other: right arm laceration bleed DONNA WEN DO Dec 21, 2021 11:08
[2021-12-21 11:31] LABS: ABG BASE EXCESS 6.1 MMOL/L (-2.5-2.5); ABG OXYGEN SATURATION 98 % (94-100); ABG PCO2 59 MMHG (35-45); ABG PH 7.35 (7.37-7.43); ABG PO2 82 MMHG (79-93); ABG TCO2 33.5 MMOL/L (21.0-31.0)
[2021-12-21 11:33] LABS: INSPIRED O2 45%; VENTILATOR NO
[2021-12-21 11:34] LABS: PATIENT TEMP 36.4
[2021-12-21] MEDS: CEFEPIME INJECTION 1,000 MG in NS (IVPB) 50 ML IV SCH ×2 (12:30→18:02)
[2021-12-21] MEDS: AZITHROMYCIN INJECTION 500 MG in NS (IVPB) 250 ML IV SCH (12:31)
[2021-12-21] MEDS: TAMSULOSIN 0.4 MG (FLOMAX) CAP PO SCH (18:02)
[2021-12-22] VITALS (9 sets, daily range): BP systolic 103–147; BP diastolic 58–87
[2021-12-22] MEDS: CEFEPIME INJECTION 1,000 MG in NS (IVPB) 50 ML IV SCH ×5 (00:08→23:34)
[2021-12-22] MEDS: HYDROcodone/APAP 5 MG/325 MG (LORTAB) TAB PO PRN (04:06)
[2021-12-22 05:37] LABS: BASOPHILS % (AUTO) 0 % (0-10); EOSINOPHILS % (AUTO) 0 % (0-10); HEMATOCRIT 38 % (40-54); HEMOGLOBIN 12.1 g/dL (13.3-17.7); LYMPHOCYTES # (AUTO) 0.7 10^3/uL (1.0-4.0); LYMPHOCYTES % (AUTO) 6 % (12-44); MEAN CORPUSCULAR HEMOGLOBIN 32 pg (25-34); MEAN CORPUSCULAR HGB CONC 32 g/dL (32-36); MEAN CORPUSCULAR VOLUME 100 fL (80-99); MEAN PLATELET VOLUME 11.1 fL (9.0-12.2); MONOCYTES # (AUTO) 1.4 10^3/uL (0.0-1.0); MONOCYTES % (AUTO) 12 % (0-12); NEUTROPHILS # (AUTO) 9.2 10^3/uL (1.8-7.8); NEUTROPHILS % (AUTO) 80 % (42-75); PLATELET COUNT 155 10^3/uL (130-400); WHITE BLOOD COUNT 11.4 10^3/uL (4.3-11.0)
[2021-12-22 06:03] LABS: ALBUMIN 3.4 GM/DL (3.2-4.5); POTASSIUM 3.8 MMOL/L (3.6-5.0)
[2021-12-22 06:04] LABS: CALCIUM 8.5 MG/DL (8.5-10.1)
[2021-12-22 06:05] LABS: TOTAL PROTEIN 5.5 GM/DL (6.4-8.2)
--- NOTE | 2021-12-22 06:06 | Progress Note - Hospitalist ---
Subjective HPI/CC On Admission Date Seen by Provider: Dec 22, 2021 Time Seen by Provider: 09:00 Chief complaint: Shortness of breath with confusion History of present illness: This is an 85-year-old male clinic patient of [facility] who I assessed at [facility] ER and transferred to [facility] to higher level of care due to BiPAP requirement. Patient has dementia and has had significant problems since falling and suffering a large laceration requiring Dr. Simon repair the day before presenting [place] [facility] [place] with severe weakness. Upon further questioning he does have a history of dementia and he has had a decline in overall function for the past year once he acquired a brown recluse spider bite last summer then recently had the first of the year had a scalp skin cancer requiring a great deal of medication who required BiPAP due to respiratory acidosis and CO2 retention. at the bedside updated on the plan he was placed on Rocephin for UTI and we will monitor him closely and consult cardiology. Subjective/Events-last exam Patient doing a little better Rough night with confusion White count 11.4 hemoglobin 12 rest of labs are okay I told community mental health social worker he needs [facility] PT and OT ordered at bedside Review of Systems General: Fatigue, Malaise Pulmonary: Dyspnea Neurological: Confusion Objective Exam Vital Signs Vital Signs Date Time Temp Pulse Resp B/P (MAP) Pulse Ox O2 Delivery O2 Flow Rate FiO2 12/22/21 20:00 36.7 85 20 109/83 (92) 91 High Flow N/C 2.50 12/21/21 04:32 30 Capillary Refill : General Appearance: No Apparent Distress, WD/WN, Chronically ill Respiratory: Lungs Clear Cardiovascular: Regular Rate, Rhythm Neurologic/Psychiatric: Alert, Oriented x3, Depressed Affect, Disoriented Results/Procedures Lab Laboratory Tests 12/22/21 05:12 Patient resulted labs reviewed. Assessment/Plan Assessment and Plan Assess & Plan/Chief Complaint Assessment: Acute respiratory insufficiency with hypercapnia and hypoxia CO2 retention Right arm laceration Presumed ERICA/OHA Dementia Delirium AF Pneumonia Plan: BiPAP at [facility] [employer] closely Cardiology appreciated Hold OAC Abx Zyprexa tonight PT OT Wound care Diagnosis/Problems Diagnosis/Problems (1) AMS (altered mental status) (2) Dementia (3) CO2 retention Clinical Quality Measures DVT/VTE Risk/Contraindication: Contraindications-Pharm: Pt at low risk Other: right arm laceration bleed DONNA WEN DO Dec 22, 2021 06:06
[2021-12-22 06:07] LABS: BILIRUBIN,TOTAL 1.4 MG/DL (0.1-1.0)
[2021-12-22 06:09] LABS: CREATININE SERUM 0.87 MG/DL (0.60-1.30)
[2021-12-22 06:12] LABS: MAGNESIUM 2.1 MG/DL (1.6-2.4)
[2021-12-22] MEDS ORDERED: ASCO1TAB12 PO (09:14)
[2021-12-22] MEDS ORDERED: ACET-2267 PO (09:14)
[2021-12-22] MEDS ORDERED: EZET10TA49 PO (09:14)
[2021-12-22] MEDS ORDERED: FINA5TAB6 PO (09:14)
[2021-12-22] MEDS ORDERED: LISI20TA26 PO (09:14)
[2021-12-22] MEDS ORDERED: CHOL10004 PO (09:14)
[2021-12-22] MEDS ORDERED: APIX5TAB PO (09:14)
[2021-12-22] MEDS ORDERED: NUTRIFERON PO (09:14)
[2021-12-22] MEDS ORDERED: PARO20TA5 PO (09:14)
[2021-12-22] MEDS ORDERED: DOXA2TAB2 PO (09:14)
[2021-12-22] MEDS ORDERED: [UNRECOGNIZED DRUG - OTHER] PO (09:14)
[2021-12-22] MEDS ORDERED: L.AC1CAP6 PO (09:14)
[2021-12-22] MEDS ORDERED: AMLO-251 PO (09:14)
[2021-12-22] MEDS ORDERED: TMSL.4C PO (09:14)
--- NOTE | 2021-12-22 09:24 | Cardiology Progress Note ---
Subjective Date Seen by Provider: Dec 22, 2021 Time Seen by Provider: 09:20 Subjective/Events-last exam Patient was seen at bedside, laying down comfortably Did not sleep well last night Still having some shortness of breath Review of Systems General: No Chills, No Night Sweats; Fatigue, Malaise; No Appetite, No Other HEENT: No Head Aches, No Visual Changes, No Eye Pain, No Ear Pain, No Dysphasia, No Sinus Congestion, No Post Nasal Drip, No Sore Throat, No Other Pulmonary: Dyspnea; No Cough, No Pleuritic Chest Pain, No Other Cardiovascular: No: Chest Pain, Palpitations, Orthopnea, Paroxysmal Noc. Dyspnea, Edema, Lt Headedness, Other Objective-Cardiology Exam Last Set of Vital Signs Vital Signs 12/21/21 12/22/21 04:32 07:50 Temp 35.9 Pulse 86 Resp 18 B/P (MAP) 137/87 (104) Pulse Ox 96 O2 Delivery NIV Bilevel O2 Flow Rate 35.00 FiO2 30 I&O Intake and Output 12/22/21 00:00 Intake Total 1660 ml Balance 1660 ml Intake Oral 1660 ml # Voids 4 # Bowel Movements 1 General: Alert, Oriented X3, Cooperative HEENT: Atraumatic, PERRLA Neck: Supple, No JVD, No Thyromegaly Lungs: Clear to Auscultation, Normal Air Movement Heart: Normal S1, Normal S2, No Murmurs, Other Abdomen: Normal Bowel Sounds, Soft, No Tenderness, No Hepatosplenomegaly, No Masses Extremities: No Clubbing, No Cyanosis, No Edema, Normal Pulses, No Tenderness/Swelling Skin: No Rashes, Other (Bruising on the arm) Neuro: Normal Gait, Normal Speech, Strength at 5/5 X4 Ext, Normal Tone, S ensation Intact Psych/Mental Status: Mental Status NL, Mood NL Results Lab Laboratory Tests 12/22/21 05:12 A/P-Cardiology Admission Diagnosis Generalized weakness Atrial fibrillation Hypertension Hyperlipidemia Assessment/Plan Generalized weakness, multiple falls. Unable to support himself. Consider physical therapy. Managed by primary care physician Persistent/probably permanent atrial fibrillation. Rate is controlled. Restart home medication and monitor blood pressure [id number] score 3, has been maintained on Eliquis. It has been on hold since December 19, 2021 secondary to bleeding and laceration on his right arm. Hypertension, was on lisinopril 20 mg daily and amlodipine 10 mg daily. Restarted lisinopril, holding amlodipine and monitoring tolerance and response Peripheral edema, has been maintained on Lasix, I am holding it, currently does not have any significant edema. Echo done on December 21, 2021 showing normal LV size with moderate LVH, ejection fraction 50 to 55%, grade 2 diastolic dysfunction, biatrial enlargement, PA pressure 30 to 35 mmHg. I am adding Coreg 3.125 mg twice daily, continue on diuretics and monitor tolerance and response Hyperlipidemia, has been on Zetia 10 mg daily, hold for now and evaluate lipid profile COPD, chronic CO2 retention, using BiPAP, was intolerant to BiPAP last night Managed by primary care physician Benign prostatic hypertrophy, maintained on tamsulosin which will be restarted Shortness of breath, patient was on BiPAP, trying to wean him down to nasal cannula. Obesity, BMI 33. ALEXANDER MERA MD Dec 22, 2021 09:24
[2021-12-22] MEDS: AZITHROMYCIN INJECTION 500 MG in NS (IVPB) 250 ML IV SCH (09:37)
[2021-12-22] MEDS: lisINopril 20 MG (PRINIVIL) TABLET PO SCH (09:38)
[2021-12-22] MEDS: DOCUSATE SODIUM 100 MG (COLACE) CAP PO SCH ×2 (09:38→21:52)
[2021-12-22] MEDS: SENNOSIDES 8.6 MG (SENOKOT) TAB PO SCH ×2 (09:38→21:52)
[2021-12-22] MEDS ORDERED: KETO15CR2 TOP (11:07)
[2021-12-22] MEDS ORDERED: CLOB15CR2 TOP (11:07)
[2021-12-22] MEDS ORDERED: MEMA5TAB43 PO (11:07)
--- NOTE | 2021-12-22 11:26 | Physical Therapy Evaluation ---
PT Evaluation-General Medical Diagnosis Admission Date Dec 20, 2021 at 16:14 Medical Diagnosis: acute resp. insuff Onset Date: Dec 20, 2021 Therapy Diagnosis Therapy Diagnosis: impaired mobility Height/Weight Height (Feet): 5 Height (Inches): 11.00 Weight (Pounds): 240 Precautions Precautions/Isolations: Fall Prevention, Standard Precautions Referral Physician: Allison Hughes DO Reason for Referral: Evaluation/Treatment Medical History Pertinent Medical History: Dementia Additional Medical History Past Medical History Surgeries: Bowel Surgery Hypertension Dementia Prostate Problems Reviewed History: Yes Social History Current Living Status: Spouse Entry Into Home: Stairs With Railing PT Steps Into Home: 2 Prior Prior Level of Function SCALE: Activities may be completed with or without assistive devices. 9-Eaijaadnkw-daqqucj completes the activity by him/herself with no assistance fr om a helper. 5-Set-up or Clean-up Assistance-helper sets up or cleans up; patient completes activity. [place] assists only prior to or following the activity. 4-Supervision or Touching Assistance-helper provides verbal cues and/or touching/steadying and/or contact guard assistance as patient completes activity. Assistance may be provided throughout the activity or intermittently. 3-Partial/Moderate Assistance-helper does LESS THAN HALF the effort. [place] lifts, holds or supports trunk or limbs, but provides less than half the effort. 2-Substantial/Maximal Assistance-helper does MORE THAN HALF the effort. [place] lifts or holds trunk or limbs and provides more than half the effort. 3-Tvaqmhjoh-ndvadn does ALL the effort. Patient does none of the effort to complete the activity. Or, the assistance of 2 or more helpers is required for the patient to complete the activity. If activity was not attempted, code reason: 7-Patient Refused. 9-Not Applicable-not attempted and the patient did not perform the activity before the current illness, exacerbation or injury. 10-Not Attempted due to Environmental Limitations-(lack of equipment, weather restraints, etc.). 88-Not Attempted due to Medical Conditions or Safety Concerns. Bed Mobility: 6 Transfers (B,C,W/C): 6 Gait: 6 Stairs: 6 Indoor Mobility (Ambulation): Independent Stairs: Independent states patient has a cane but doesn't use it, also says patient has been getting weaker recently and has had falls, has a laceration in his right arm from a fall. PT Evaluation-Current Subjective Patient in bed pre tx, agrees to PT, has unrated pain in left hip and right arm, right arm is very swollen and is heavily bandaged, nurse aware. Pt/Family Goals "to get stronger" Objective Patient Orientation: Person, Situation Attachments: Oxygen, IV ROM/Strength ROM Lower Extremities WNL Strength Lower Extremities grossly 4/5 BLE Sensory Hearing: Functional Sensation Right Lower Extremit: Impaired Sensation Left Lower Extremity: Impaired Transfers Roll Left to Right (QC): 3 Sit to Lying (QC): 3 Lying to Sitting/Side of Bed(Q: 3 Sit to Stand (QC): 3 Patient sits to the side of the bed with mod assist, stands with mod assist, slightly retropulsive in standing, he has pain in left hip with standing and his right knee seems to slightly buckle a few times, patient is able to sidestep a few steps toward the head of the bed and sit back down and then lay down with mod assist, nurse assisted to scoot patient up in bed. Balance Sitting Static: Normal Sitting Dynamic: Normal Standing Static: Poor Standing Dynamic: Poor Treatment BLE supine x20 (AP, HS) Assessment/Needs Patient in bed post tx with nurse call, phone, tray, bed alarm on, in room. Patient has impaired mobility, strength, endurance. He can be a little impulsive. He is slightly retropulsive in standing, has left hip pain and right knee carmina a bit. 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 PT Longterm Goals Time Frame: Dec 29, 2021 Roll Left & Right (QC): 6 Sit to Lying (QC): 4 Lying-Sitting on Side/Bed(QC): 4 Sit to Stand (QC): 4 Chair/Ddv-ms-Gwjxf Xfer(QC): 4 Walk 10 feet (QC): 4 PT Plan Problem List Problem List: Activity Tolerance, Functional Strength, Safety, Balance, Gait, Transfer, Bed Mobility, ROM Treatment/Plan Treatment Plan: Continue Plan of Care Treatment Plan: Bed Mobility, Education, Functional Activity Liana, Functional Strength, Gait, Safety, Therapeutic Exercise, Transfers Treatment Duration: Dec 29, 2021 Frequency: 6 times per week Estimated Hrs Per Day: .25 hour per day Patient and/or Family Agrees t: Yes Safety Risks/Education Patient Education: Gait Training, Transfer Techniques, Correct Positioning, Safety Issues Teaching Recipient: Patient Teaching Methods: Demonstration, Discussion Response to Teaching: Reinforcement Needed Discharge Recommendations Plan Patient will perform bed mobility and transfer training, balance and endurance training, functional strengthening, stair training, gait training, and education, to improve functional mobility and independence at home. Therapy Discharge Recommendati: Scheduled Assistance, Home & Family, Post Acute PT Time/GCodes Time In: 935 Time Out: 952 Total Billed Treatment Time: 17 Total Billed Treatment 1 visit MARY Barajas' URBANO LUGO PT Dec 22, 2021 11:26
--- NOTE | 2021-12-22 11:55 | Occupational Therapy Eval ---
OT Evaluation-General/PLF Medical Diagnosis Admission Date Dec 20, 2021 at 16:14 Medical Diagnosis: acute resp. insuff Onset Date: Dec 20, 2021 Therapy Diagnosis Therapy Diagnosis: reduced adl status Height/Weight Height (Feet): 5 Height (Inches): 11.00 Weight (Pounds): 240 Precautions Precautions/Isolations: Fall Prevention, Standard Precautions Referral Physician: Allison Hughes DO Referral Reason: Evaluation/Treatment Medical History Pertinent Medical History: Atrial Fib, Dementia, HTN Current History Pt presents to hospital with SOB and confusion. Per , pt had a fall resulting in a large laceration on RUE. Per , pt is pretty sedentary and only walks short distances within home. He does not use any AD but does own a walker and cane. His assist with donning socks/shoes and transferring in/out of tub but patient able to complete all other adls independently. His manages all IADLs. Reviewed History: Yes Social History Current Living Status: Spouse Entry Into Home: Stairs With Railing Steps Into Home: 2 ADL-Prior Level of Function SCALE: Activities may be completed with or without assistive devices. 7-Yqgvavzdph-chgfmxx completes the activity by him/herself with no assistance from a helper. 5-Set-up or Clean-up Assistance-helper sets up or cleans up; patient completes activity. [place] assists only prior to or following the activity. 4-Supervision or Touching Assistance-helper provides verbal cues and/or touching/steadying and/or contact guard assistance as patient completes activity. Assistance may be provided throughout the activity or intermittently. 3-Partial/Moderate Assistance-helper does LESS THAN HALF the effort. [place] lifts, holds or supports trunk or limbs, but provides less than half the effort. 2-Substantial/Maximal Assistance-helper does MORE THAN HALF the effort. [place] lifts or holds trunk or limbs and provides more than half the effort. 3-Pjcyspacv-bqnnzc does ALL the effort. Patient does none of the effort to complete the activity. Or, the assistance of 2 or more helpers is required for the patient to complete the activity. If activity was not attempted, code reason: 7-Patient Refused. 9-Not Applicable-not attempted and the patient did not perform the activity before the current illness, exacerbation or injury. 10-Not Attempted due to Environmental Limitations-(lack of equipment, weather restraints, etc.). 88-Not Attempted due to Medical Conditions or Safety Concerns. Self Care: Needed Some Help Functional Cognition: Needed Some Help DME/Equipment: Grab Bars, Tub/Shower Drive Self: No OT Current Status Subjective Pt sleeping at OT arrival, easy to rouse. Reports chronic back pain and RUE pain. Appearance Pt left supine in bed, all needs within reach, in room, RN notified. Mental Status/Objective Patient Orientation: Person, Situation Attachments: Wheat Catheter, IV, Oxygen (2L) Current Hand Dominance: Right Upper Extremity ROM RUE with significant swelling. Hand/wrist/elbow Range limited by edema. During shoulder assessment, elbow bandage saturated in blood with blood dripping out of bandage, assessment terminated early. LUE WNL Upper Extremity Strength RUE impaired LUE: 3+/5 ADL-Treatment Eating (QC): 2 ( reports patient has tried to feed self with LUE but ultimately needs assistance from .) Toileting Hygiene (QC): 1 (wheat catheter) Pt supine in bed at OT arrival. Mod-max a to elevate torso to sit EOB. Upon sitting upright, elbow bandage saturated in blood. Pt returned to supine. Significant swelling settling in hand/wrist. Bal bandage appears to be too tight. RN notified. Extra pillows placed for positioning/elevating RUE. OT provided pt with red foam and educated p/ on on gentle ROM exercises to aid in reducing edema. Education OT Patient Education: Correct positioning, Exercise program, Purpose of tx/functional activities, Rehab process, Safety issues, Transfer techniques Teaching Recipient: Patient, Family Teaching Methods: Demonstration, Discussion Response to Teaching: Verbalize Understanding, Return Demonstration, Reinforcement Needed OT Advance Agent Goals Fdc Goals Time Frame: Jan 05, 2022 Eating (QC): 4 Oral Hygiene (QC): 4 Toileting Hygiene (QC): 4 Upper Body Dressing (QC): 4 Lower Body Dressing (QC): 4 1=Demonstrate adherence to instructed precautions during ADL tasks. 2=Patient will verbalize/demonstrate understanding of assistive devices/modifications for ADL. 3=Patient will improve strength/tolerance for activity to enable patient to perform ADL's. OT Education/Plan Problem List/Assessment Assessment: Decreased Activ Tolerance, Decreased Safety Aware, Decreased UE Strength, Edema, Impaired Bed Mobility, Impaired Cognition, Impaired Coordination, Impaired Funct Balance, Impaired Self-Care Skills, Restricted Funct UE ROM Discharge Recommendations Plan/Recommendations: Continue POC Therapy Discharge Recommendati: Post Acute OT Treatment Plan/Plan of Care Treatment,Training & Education: Yes Patient would benefit from OT for education, treatment and training to promote independence in ADL's, mobility, safety and/or upper extremity function for ADL's. Plan of Care: ADL Retraining, Cognitive Retraining, Functional Mobility, Group Exercise/Act as Ind, UE Funct Exercise/Act Treatment Duration: Jan 05, 2022 Frequency: 3 times per week (3-5x/week) Estimated Hrs Per Day: .25 hour per day Agreement: Yes Rehab Potential: Fair Time/GCodes Start Time: 11:20 Stop Time: 11:40 Total Time Billed (hr/min): 20 Billed Treatment Time 1 visit Sary Xie OT Dec 22, 2021 11:55
[2021-12-22] MEDS: TAMSULOSIN 0.4 MG (FLOMAX) CAP PO SCH (18:01)
--- NOTE | 2021-12-22 20:14 | Physician Query Clarification ---
Physician Query-General Query to Physician: The medical record reflects the following clinical evidence: Clinical Indicators: Transferred due to need for respiratory management requiring Bipap, on 8L 02 with 02 sats 98% (P/F=187) then 90 to 92% when attempting to wean down to 2.5 L (P/F=200), RR 19 to 34, ABG on Admission Ph 7.30, PCO2 62, P02 95, HCO 21 on 10L 02, Risk Factor(s): Pneumonia, advanced age with no documented Hx of home 02 use. Treatment: Bipap, Supplemental O2 up to 10L 1. Acute respiratory failure, with hypoxia and hypercapnia, present on admission 2. Other explanation of clinical findings 3. Unable to determine (no explanation for clinical findings) Please clarify and document your clinical opinion in the progress notes and discharge summary including the definitive and/or presumptive diagnosis, (suspected or probable), related to the above clinical findings. Please include clinical findings supporting your diagnosis. Rosmery Spaulding MSN, RN Clinical Sample Checker [phone] [email or web address] PHYSICIAN RESPONSE: Based on the clinical findings in the record, please respond to the query above on this document as an addendum. Physician Response: Physician Response 1 If you have questions please contact: Cotton Wringer: Ext: Thank you for your time and cooperation. Clinical Sample Checker/Cotton Wringer This is a permanent part of the medical record ROSMERY SPAULDING Dec 22, 2021 20:14 DONNA WEN DO Dec 22, 2021 20:22
[2021-12-22] MEDS: OLANZapine 5 MG (ZyPREXA) TAB PO SCH (21:47)
[2021-12-22] MEDS: MELATONIN 3 MG TABLET PO PRN (21:47)
[2021-12-22] MEDS: eZETimibe 10 MG (ZETIA) TABLET PO SCH (21:47)
[2021-12-22] MEDS: amLODIPine 10 MG (NORVASC) TAB PO SCH (21:52)
[2021-12-22] MEDS: MEMANTINE 5 MG (NAMENDA) TABLET PO SCH (21:52)
[2021-12-22] MEDS: doxAzosin 2 MG (CARDURA) TAB PO SCH (21:52)
[2021-12-22] MEDS: VITAMIN D3 25 MCG (1,000 UNITS) TABLET PO SCH (21:52)
[2021-12-22] MEDS: KETOCONAZOLE 2% CREAM 15 GM (NIZORAL) TOP SCH (21:52)
[2021-12-22] MEDS: PARoxetine 20 MG (PAXIL) TAB PO SCH (21:52)
[2021-12-23 04:08] VITALS: BP 100/68
[2021-12-23 05:55] LABS: BASOPHILS % (AUTO) 0 % (0-10); EOSINOPHILS # (AUTO) 0.1 10^3/uL (0.0-0.3); EOSINOPHILS % (AUTO) 1 % (0-10); HEMATOCRIT 33 % (40-54); HEMOGLOBIN 10.5 g/dL (13.3-17.7); LYMPHOCYTES # (AUTO) 0.7 10^3/uL (1.0-4.0); LYMPHOCYTES % (AUTO) 7 % (12-44); MEAN CORPUSCULAR HEMOGLOBIN 32 pg (25-34); MEAN CORPUSCULAR HGB CONC 32 g/dL (32-36); MEAN CORPUSCULAR VOLUME 101 fL (80-99); MEAN PLATELET VOLUME 11.4 fL (9.0-12.2); MONOCYTES # (AUTO) 0.9 10^3/uL (0.0-1.0); MONOCYTES % (AUTO) 9 % (0-12); NEUTROPHILS # (AUTO) 7.3 10^3/uL (1.8-7.8); NEUTROPHILS % (AUTO) 81 % (42-75); PLATELET COUNT 159 10^3/uL (130-400)
--- NOTE | 2021-12-23 05:55 | Progress Note - Hospitalist ---
Subjective HPI/CC On Admission Date Seen by Provider: Dec 23, 2021 Time Seen by Provider: 09:30 Chief complaint: Shortness of breath with confusion History of present illness: This is an 85-year-old male clinic patient of [facility] who I assessed at [facility] ER and transferred to [facility] to higher level of care due to BiPAP requirement. Patient has dementia and has had significant problems since falling and suffering a large laceration requiring Dr. Simon repair the day before presenting back to [facility] ER with severe weakness. Upon further questioning he does have a history of dementia and he has had a decline in overall function for the past year once he acquired a brown recluse spider bite last summer then recently had the first of the year had a scalp skin cancer requiring a great deal of medication who required BiPAP due to respiratory acidosis and CO2 retention. at the bedside updated on the plan he was placed on Rocephin for UTI and we will monitor him closely and consult cardiology. Subjective/Events-last exam Patient sedated Patient had not slept at all for the last 3 nights at bedside and very conversant PT and OT will return back this afternoon to get him up and around Needs to go to [facility] awaiting insurance approval Talked to her about end-of-life care and she made him DNR since that is what they discussed many years ago Wound care consulted Review of Systems General: Fatigue, Malaise Objective Exam Vital Signs Vital Signs Date Time Temp Pulse Resp B/P (MAP) Pulse Ox O2 Delivery O2 Flow Rate FiO2 12/23/21 19:13 37.2 69 16 91/54 (66) 94 Nasal Cannula 3.00 12/21/21 04:32 30 Capillary Refill : General Appearance: No Apparent Distress, WD/WN, Chronically ill Respiratory: Lungs Clear, Normal Breath Sounds Cardiovascular: Regular Rate, Rhythm Neurologic/Psychiatric: Other (asleep) Results/Procedures Lab Laboratory Tests 12/23/21 05:24 Patient resulted labs reviewed. Assessment/Plan Assessment and Plan Assess & Plan/Chief Complaint Assessment: Acute respiratory insufficiency with hypercapnia and hypoxia CO2 retention Right arm laceration Presumed ERICA/OHA Dementia Delirium AF Pneumonia Plan: BiPAP at [employer] closely Cardiology appreciated Hold OAC Abx Zyprexa tonight PT OT Wound care Diagnosis/Problems Diagnosis/Problems (1) AMS (altered mental status) (2) Dementia (3) CO2 retention Clinical Quality Measures DVT/VTE Risk/Contraindication: Contraindications-Pharm: Pt at low risk Other: right arm laceration bleed DONNA WEN DO Dec 23, 2021 05:55
[2021-12-23 05:56] LABS: ALBUMIN 3.1 GM/DL (3.2-4.5)
[2021-12-23 05:57] LABS: POTASSIUM 4.4 MMOL/L (3.6-5.0)
[2021-12-23 05:58] LABS: CALCIUM 8.4 MG/DL (8.5-10.1)
[2021-12-23 06:01] LABS: BILIRUBIN,TOTAL 0.8 MG/DL (0.1-1.0)
[2021-12-23 06:03] LABS: CREATININE SERUM 1.05 MG/DL (0.60-1.30)
[2021-12-23] MEDS: CEFEPIME INJECTION 1,000 MG in NS (IVPB) 50 ML IV SCH ×4 (06:24→23:53)
[2021-12-23 07:00] LABS: BAND NEUTROPHILS 1 %; EOSINOPHILS % (MANUAL) 1 %; LYMPHOCYTES % (MANUAL) 7 %; MONOCYTES % (MANUAL) 4 %; NEUTROPHILS % (MANUAL) 87 %; RBC MORPH NORMAL
[2021-12-23 07:59] VITALS: BP 96/64
--- NOTE | 2021-12-23 08:37 | Cardiology Progress Note ---
Subjective Date Seen by Provider: Dec 23, 2021 Time Seen by Provider: 08:35 Subjective/Events-last exam Patient is lethargic, sleeping, moaning in bed I was unable to wake him up. Review of Systems General: Other (Unable to provide review of system.) Objective-Cardiology Exam Last Set of Vital Signs Vital Signs 12/21/21 12/23/21 04:32 07:59 Temp 36.7 Pulse 61 Resp 18 B/P (MAP) 96/64 (75) Pulse Ox 95 O2 Delivery Nasal Cannula O2 Flow Rate 2.00 FiO2 30 I&O Intake and Output 12/23/21 00:00 Intake Total 1920 ml Output Total 200 ml Balance 1720 ml Intake Oral 1320 ml IV Total 600 ml Output Urine Total 200 ml # Voids 6 General: Other (Sleeping) HEENT: Atraumatic Neck: Supple, No JVD, No Thyromegaly Lungs: Clear to Auscultation, Normal Air Movement Heart: Normal S1, Normal S2, No Murmurs, Other Abdomen: Normal Bowel Sounds, Soft, No Tenderness, No Hepatosplenomegaly, No Masses Extremities: No Clubbing, No Cyanosis, No Edema, Normal Pulses, No Tenderness/Swelling Skin: No Rashes, Other (Bruising on the arm) Neuro: Sensation Intact Psych/Mental Status: Other (Sleeping and lethargic) Results Lab Laboratory Tests 12/23/21 05:24 A/P-Cardiology Admission Diagnosis Generalized weakness Atrial fibrillation Hypertension Hyperlipidemia Assessment/Plan Generalized weakness, multiple falls. Unable to support himself. Currently lethargic and sleeping. I was unable to wake him up Patient received Xanax, melatonin. I will hold these medication and monitor mental status closely. Persistent/probably permanent atrial fibrillation. Rate is controlled. Restart home medication and monitor blood pressure [id number] score 3, has been maintained on Eliquis. It has been on hold since December 19, 2021 secondary to bleeding and laceration on his right arm. Hypertension, was on lisinopril 20 mg daily and amlodipine 10 mg daily. Restarted lisinopril, holding amlodipine and monitoring tolerance and response Peripheral edema, has been maintained on Lasix, I am holding it, currently does not have any significant edema. Echo done on December 21, 2021 showing normal LV size with moderate LVH, ejection fraction 50 to 55%, grade 2 diastolic dysfunction, biatrial enlargement, PA pressure 30 to 35 mmHg. I am adding Coreg 3.125 mg twice daily, continue on diuretics and monitor tolerance and response Hyperlipidemia, has been on Zetia 10 mg daily, hold for now and evaluate lipid profile COPD, chronic CO2 retention, using BiPAP, was intolerant to BiPAP last night Managed by primary care physician Benign prostatic hypertrophy, maintained on tamsulosin which will be restarted Shortness of breath, patient was on BiPAP, trying to wean him down to nasal cannula. Obesity, BMI 33. ALEXANDER MERA MD Dec 23, 2021 08:37
[2021-12-23] MEDS ORDERED: lisINopril 20 MG (PRINIVIL) TABLET PO SCH (09:00)
--- NOTE | 2021-12-23 09:02 | Occ Therapy Progress Note ---
Therapy Progress Note Attempt to see patient for OT treatment. Pt lethargic, unable to rouse. reports pt has been like this since yesterday afternoon. RUE appears more discolored this date, bandage saturated in blood. RN notified. OT to attempt again at a later time if scheduling allows. Sary Santos OT Dec 23, 2021 09:02
[2021-12-23] MEDS: FINASTERIDE (PROSCAR) 5 MG TAB PO SCH (09:17)
[2021-12-23] MEDS: LACTOBACILLUS ACIDOPHILUS (PROBIOTIC) CAPSULE PO SCH (09:17)
[2021-12-23] MEDS: KETOCONAZOLE 2% CREAM 15 GM (NIZORAL) TOP SCH ×2 (09:17→20:38)
[2021-12-23] MEDS: AZITHROMYCIN 250 MG TAB (ZITHROMAX) PO SCH (09:17)
[2021-12-23] MEDS: DOCUSATE SODIUM 100 MG (COLACE) CAP PO SCH ×2 (09:18→20:37)
[2021-12-23] MEDS: MEMANTINE 5 MG (NAMENDA) TABLET PO SCH ×2 (09:18→20:38)
[2021-12-23] MEDS: SENNOSIDES 8.6 MG (SENOKOT) TAB PO SCH ×2 (09:18→20:38)
[2021-12-23] MEDS: HYDROcodone/APAP 5 MG/325 MG (LORTAB) TAB PO PRN ×3 (09:18→23:56)
[2021-12-23] MEDS: VITAMIN D3 25 MCG (1,000 UNITS) TABLET PO SCH ×2 (09:18→20:37)
[2021-12-23] MEDS: ASCORBIC ACID (VIT C) 500 MG TABLET PO SCH (09:18)
[2021-12-23] MEDS: lisINopril 20 MG (PRINIVIL) TABLET PO SCH (09:18)
--- NOTE | 2021-12-23 09:49 | Physical Therapy Progress Note ---
Therapy Progress Note Attempt to see patient for PT treatment. Pt lethargic, unable to rouse. reports pt has been like this since yesterday afternoon. PT to attempt again at a later time if scheduling allows. YE WEBER PT Dec 23, 2021 09:49
[2021-12-23 11:24] VITALS: BP 94/56
--- NOTE | 2021-12-23 13:07 | Physical Therapy Progress Note ---
Therapy Progress Note Per OT report, patient continues to be too sedated to participate with skilled PT at this time. Will attempt in YE Villagomez PT Dec 23, 2021 13:07
--- NOTE | 2021-12-23 13:08 | Occ Therapy Progress Note ---
Therapy Progress Note Per nrsg, patient continues to be too sedated to participate with skilled OT at this time. Will attempt in DARCY Rizzo Dec 23, 2021 13:08
[2021-12-23 16:00] VITALS: BP 93/54
--- NOTE | 2021-12-23 16:23 | Wound Care Assessment ---
Wound Care Assessment Date Seen by Provider: Dec 23, 2021 Time Seen by Provider: 12:00 Chief Complaint Laceration R. arm HPI This 85 year old gentleman with severe dementia was admitted to the hospital after recent fall with laceration to right arm. He was initially seen in ER and laceration was repaired per Dr. Simon ([facility]). I do not have access to these records. He appears to have had significant bleeding (questionable hematoma evacuation?) and in addition to sutures has jamaal drain in place. His current dressing is saturated (through gauze, ABD, kerlix and JAILYN) with blood. However, upon removal I did not notice continued active bleeding. He does have massive edema to RUE and associated ecchymosis. On labs he is noted to have mild anemia with preserved renal function and mild hypoalbuminemia. I do not have further history on Mr. Leon (he is unable to assist in history/ROS). Smoking Status: Never a Smoker Review of Systems Other systems Unable to obtain ROS due to mental status Exam Vital Signs Date Time Temp Pulse Resp B/P (MAP) Pulse Ox O2 Delivery O2 Flow Rate FiO2 12/23/21 11:24 36.7 59 18 94/56 (69) 90 Nasal Cannula 2.00 12/21/21 04:32 30 Capillary Refill : General Appearance: WD/WN, no apparent distress, other (Patient sleeps through exam but is arousable to verbal and tactile stimuli. He speaks but is not coherent) Respiratory: no respiratory distress, no accessory muscle use Extremities: no pedal edema Neurologic/Psychiatric: disoriented x 3 Skin: ecchymosis (entirety of RUE with ecchymosis and associated edema (pitting)) Laceration: Extensive laceration with repair. Incision with some oozing but no brisk bleeding. Crescent in place. No surrounding erythema. Significant ecchymosis to entirety of RUE and associated edema Results Laboratory Tests 12/23/21 05:24: White Blood Count 9.0, Red Blood Count 3.29L, Hemoglobin 10.5L, Hematocrit 33L, Mean Corpuscular Volume 101H, Mean Corpuscular Hemoglobin 32, Mean Corpuscular Hemoglobin Concent 32, Red Cell Distribution Width 13.7, Platelet Count 159, Mean Platelet Volume 11.4, Immature Granulocyte % (Auto) 1, Neutrophils (%) ( Auto) 81H, Lymphocytes (%) (Auto) 7L, Monocytes (%) (Auto) 9, Eosinophils (%) (Auto) 1, Basophils (%) (Auto) 0, Neutrophils # (Auto) 7.3, Lymphocytes # (Auto) 0.7L, Monocytes # (Auto) 0.9, Eosinophils # (Auto) 0.1, Basophils # (Auto) 0.0, Immature Granulocyte # (Auto) 0.1, Neutrophils % (Manual) 87, Lymphocytes % (Manual) 7, Monocytes % (Manual) 4, Eosinophils % (Manual) 1, Band Neutrophils 1, Blood Morphology Comment NORMAL, Sodium Level 145, Potassium Level 4.4, Chloride Level 107, Carbon Dioxide Level 29, Anion Gap 9, Blood Urea Nitrogen 23H, Creatinine 1.05, Estimat Glomerular Filtration Rate 70, BUN/Creatinine Ratio 22, Glucose Level 137H, Calcium Level 8.4L, Corrected Calcium 9.1, Total Bilirubin 0.8, Aspartate Amino Transf (AST/SGOT) 16, Alanine Aminotransferase ( ALT/SGPT) 11, Alkaline Phosphatase 47, Total Protein 5.0L, Albumin 3.1L Assessment/Plan/Dx Assessment: 1. Fall with laceration RUE 2. Edema RUE 3. Severe dementia 4. Mild anemia (etiology unclear) Plan: 1. Cleanse daily with saline. Apply xeroform to laceration and cover with ABD, kerlix and secure with JAILYN wrap. Wrap should extend from base of fingers to shoulder. Elevate arm above level of heart on pillow. Consult Dr. Simon for further post-surgical care and instructions on removal of sutures/drain 2. As above 3. Per primary team 4. Per primary team JOEY STEVENSON MD Dec 23, 2021 16:22
[2021-12-23] MEDS: amLODIPine 10 MG (NORVASC) TAB PO SCH (17:51)
[2021-12-23] MEDS: doxAzosin 2 MG (CARDURA) TAB PO SCH (17:51)
[2021-12-23] MEDS ORDERED: TAMSULOSIN 0.4 MG (FLOMAX) CAP PO SCH (18:00)
[2021-12-23] MEDS: eZETimibe 10 MG (ZETIA) TABLET PO SCH (18:14)
[2021-12-23] MEDS: TAMSULOSIN 0.4 MG (FLOMAX) CAP PO SCH (18:14)
[2021-12-23 19:13] VITALS: BP 91/54
[2021-12-23 20:15] VITALS: BP 107/64
[2021-12-23] MEDS: PARoxetine 20 MG (PAXIL) TAB PO SCH (20:37)
[2021-12-23] MEDS: OLANZapine 5 MG (ZyPREXA) TAB PO SCH (20:38)
[2021-12-24] VITALS (7 sets, daily range): BP systolic 92–109; BP diastolic 52–64
[2021-12-24] MEDS: CEFEPIME INJECTION 1,000 MG in NS (IVPB) 50 ML IV SCH ×4 (05:24→23:25)
--- NOTE | 2021-12-24 06:01 | Progress Note - Hospitalist ---
Subjective HPI/CC On Admission Date Seen by Provider: Dec 24, 2021 Time Seen by Provider: 09:00 Chief complaint: Shortness of breath with confusion History of present illness: This is an 85-year-old male clinic patient of [facility] who I assessed at [facility] ER and transferred to [facility] to higher level of care due to BiPAP requirement. Patient has dementia and has had significant problems since falling and suffering a large laceration requiring Dr. Simon repair the day before presenting back to [facility] ER with severe weakness. Upon further questioning he does have a history of dementia and he has had a decline in overall function for the past year once he acquired a brown recluse spider bite last summer then recently had the first of the year had a scalp skin cancer requiring a great deal of medication who required BiPAP due to respiratory acidosis and CO2 retention. at the bedside updated on the plan he was placed on Rocephin for UTI and we will monitor him closely and consult cardiology. Subjective/Events-last exam Pt is declining CT of the brain and chest x-ray will be ordered Creatinine was 1.68, so will initiate D5 normal saline at 75 ccs an hour Pt has had an overall decline in the last year and at the bedside realizes that He is DNR No evidence of any meningitis Review of Systems General: Fatigue, Malaise Neurological: Confusion Focused Exam Lactate Level 12/24/21 10:15: Lactic Acid Level 0.64 Objective Exam Vital Signs Vital Signs Date Time Temp Pulse Resp B/P (MAP) Pulse Ox O2 Delivery O2 Flow Rate FiO2 12/24/21 16:00 36.5 84 20 92/57 (69) 93 Nasal Cannula 4.00 12/21/21 04:32 30 Capillary Refill : General Appearance: No Apparent Distress, WD/WN, Chronically ill Respiratory: Lungs Clear, Normal Breath Sounds, Decreased Breath Sounds Cardiovascular: Regular Rate, Rhythm Neurologic/Psychiatric: Disoriented Results/Procedures Lab Laboratory Tests 12/24/21 06:11 Patient resulted labs reviewed. Assessment/Plan Assessment and Plan Assess & Plan/Chief Complaint Assessment: Acute respiratory insufficiency with hypercapnia and hypoxia CO2 retention Right arm laceration Presumed ERICA/OHA Dementia Delirium AF Pneumonia [place]ONA due to dehydration Urinary retention requiring wheat placement Plan: BiPAP at [employer] closely Cardiology appreciated Hold OAC Abx Zyprexa tonight PT OT Wound care 12/24: CT head CXR Wheat cath Septic w/u Appearing more declined DNR Diagnosis/Problems Diagnosis/Problems (1) AMS (altered mental status) (2) Dementia (3) CO2 retention Clinical Quality Measures DVT/VTE Risk/Contraindication: Contraindications-Pharm: Pt at low risk Other: right arm laceration bleed DONNA WEN DO Dec 24, 2021 06:01
[2021-12-24 06:35] LABS: BASOPHILS # (AUTO) 0.1 10^3/uL (0.0-0.1); BASOPHILS % (AUTO) 1 % (0-10); EOSINOPHILS # (AUTO) 0.3 10^3/uL (0.0-0.3); EOSINOPHILS % (AUTO) 3 % (0-10); HEMATOCRIT 34 % (40-54); HEMOGLOBIN 10.7 g/dL (13.3-17.7); LYMPHOCYTES # (AUTO) 0.8 10^3/uL (1.0-4.0); LYMPHOCYTES % (AUTO) 8 % (12-44); MEAN CORPUSCULAR HEMOGLOBIN 32 pg (25-34); MEAN CORPUSCULAR HGB CONC 32 g/dL (32-36); MEAN CORPUSCULAR VOLUME 102 fL (80-99); MEAN PLATELET VOLUME 11.4 fL (9.0-12.2); MONOCYTES # (AUTO) 1.1 10^3/uL (0.0-1.0); MONOCYTES % (AUTO) 11 % (0-12); NEUTROPHILS # (AUTO) 8.1 10^3/uL (1.8-7.8); NEUTROPHILS % (AUTO) 77 % (42-75); PLATELET COUNT 179 10^3/uL (130-400); WHITE BLOOD COUNT 10.5 10^3/uL (4.3-11.0)
[2021-12-24 06:42] LABS: ALBUMIN 3.2 GM/DL (3.2-4.5)
[2021-12-24 06:43] LABS: POTASSIUM 4.2 MMOL/L (3.6-5.0)
[2021-12-24 06:44] LABS: CALCIUM 8.4 MG/DL (8.5-10.1)
[2021-12-24 06:45] LABS: TOTAL PROTEIN 5.3 GM/DL (6.4-8.2)
[2021-12-24 06:47] LABS: BILIRUBIN,TOTAL 0.9 MG/DL (0.1-1.0)
[2021-12-24 06:49] LABS: CREATININE SERUM 1.68 MG/DL (0.60-1.30)
[2021-12-24] MEDS: VITAMIN D3 25 MCG (1,000 UNITS) TABLET PO SCH ×2 (08:33→21:54)
[2021-12-24] MEDS: ASCORBIC ACID (VIT C) 500 MG TABLET PO SCH (08:33)
[2021-12-24] MEDS: lisINopril 20 MG (PRINIVIL) TABLET PO SCH (08:34)
[2021-12-24] MEDS: LACTOBACILLUS ACIDOPHILUS (PROBIOTIC) CAPSULE PO SCH (08:34)
[2021-12-24] MEDS: FINASTERIDE (PROSCAR) 5 MG TAB PO SCH (08:34)
[2021-12-24] MEDS: MEMANTINE 5 MG (NAMENDA) TABLET PO SCH ×2 (08:34→21:54)
[2021-12-24] MEDS: AZITHROMYCIN 250 MG TAB (ZITHROMAX) PO SCH (08:34)
[2021-12-24] MEDS: DOCUSATE SODIUM 100 MG (COLACE) CAP PO SCH ×2 (08:36→21:00)
[2021-12-24] MEDS: KETOCONAZOLE 2% CREAM 15 GM (NIZORAL) TOP SCH ×2 (08:36→21:55)
[2021-12-24] MEDS: SENNOSIDES 8.6 MG (SENOKOT) TAB PO SCH ×2 (08:36→21:00)
[2021-12-24] MEDS: D5 NS 1000 ML IV SOLUTION 1,000 ML IV SCH ×2 (10:17→23:26)
[2021-12-24] MEDS: HYDROcodone/APAP 5 MG/325 MG (LORTAB) TAB PO PRN (10:21)
--- NOTE | 2021-12-24 10:28 | Cardiology Progress Note ---
Subjective Date Seen by Provider: Dec 24, 2021 Time Seen by Provider: 10:26 Subjective/Events-last exam Patient was seen at bedside, laying down comfortably. Responding appropriately but does not open his eyes. Still lethargic Review of Systems General: No Chills, No Night Sweats; Fatigue, Malaise; No Appetite, No Other HEENT: No Head Aches, No Visual Changes, No Eye Pain, No Ear Pain, No Dysphasia, No Sinus Congestion, No Post Nasal Drip, No Sore Throat, No Other Pulmonary: No Dyspnea, No Cough, No Pleuritic Chest Pain, No Other Cardiovascular: No: Chest Pain, Palpitations, Orthopnea, Paroxysmal Noc. Dyspnea, Edema, Lt Headedness, Other Focused Exam Lactate Level 12/24/21 10:15: Lactic Acid Level Laboratory Tests Test 12/24/21 10:15 Objective-Cardiology Exam Last Set of Vital Signs Vital Signs 12/21/21 12/24/21 04:32 07:35 Temp 37.2 Pulse 65 Resp 20 B/P (MAP) 109/57 (74) Pulse Ox 92 O2 Delivery Nasal Cannula O2 Flow Rate 3.50 FiO2 30 I&O Intake and Output 12/24/21 00:00 Intake Total 540 ml Balance 540 ml Intake Oral 340 ml IV Total 200 ml # Voids 2 # Bowel Movements 1 General: Alert, No Acute Distress HEENT: Atraumatic Neck: Supple, No JVD, No Thyromegaly Lungs: Clear to Auscultation, Normal Air Movement Heart: Normal S1, Normal S2, No Murmurs, Other Abdomen: Normal Bowel Sounds, Soft, No Tenderness, No Hepatosplenomegaly, No Masses Extremities: No Clubbing, No Cyanosis, No Edema, Normal Pulses, No Tenderness/Swelling Skin: No Rashes, Other (Bruising on the arm) Neuro: Normal Speech, Sensation Intact Psych/Mental Status: Mood NL Results Lab Laboratory Tests 12/24/21 06:11 A/P-Cardiology Admission Diagnosis Generalized weakness Atrial fibrillation Hypertension Hyperlipidemia Assessment/Plan Generalized weakness, multiple falls. Unable to support himself. Having change in mental status and generalized weakness and lethargy. More arousable today and following commands but refused to open his eyes. Discussed with Dr. Crum the management plan. Agree with evaluating CT. Persistent/probably permanent atrial fibrillation. Rate is controlled. Restart home medication and monitor blood pressure [id number] score 3, has been maintained on Eliquis. It has been on hold since December 19, 2021 secondary to bleeding and laceration on his right arm. Hypertension, was on lisinopril 20 mg daily and amlodipine 10 mg daily. Restarted lisinopril, holding amlodipine and monitoring tolerance and response Peripheral edema, has been maintained on Lasix, I am holding it, currently does not have any significant edema. Echo done on December 21, 2021 showing normal LV size with moderate LVH, ejection fraction 50 to 55%, grade 2 diastolic dysfunction, biatrial enlargement, PA pressure 30 to 35 mmHg. He is currently hypotensive. Unable to tolerate beta-blockers. I will stop Coreg. Stop amlodipine. Monitor blood pressure Hyperlipidemia, has been on Zetia 10 mg daily, hold for now and evaluate lipid profile COPD, chronic CO2 retention, using BiPAP, was intolerant to BiPAP last night Managed by primary care physician Benign prostatic hypertrophy, maintained on tamsulosin which will be restarted Shortness of breath, patient was on BiPAP, trying to wean him down to nasal cannula. Obesity, BMI 33. ALEXANDER MERA MD Dec 24, 2021 10:28
--- NOTE | 2021-12-24 10:55 | Occ Therapy Progress Note ---
Therapy Progress Note Attempt to see pt for OT treatment. Upon entering room, RN reports pt is not following commands, is in a lot of pain, and will be leaving room immediately for CT. OT will attempt again at a later time if scheduling allows and if pt is medically appropriate. Sary Santos OT Dec 24, 2021 10:55
--- NOTE | 2021-12-24 11:17 | Diagnostic Imaging Report ---
INDICATION: Dyspnea. TIME OF EXAM: 10:03 AM. COMPARISON: Correlation is made with the prior chest from 12/21/2021. FINDINGS: The heart is enlarged. There is central congestion. There appears to be some perihilar and right basilar infiltrate present. No effusion or pneumothorax is seen. IMPRESSION: Cardiomegaly with central congestion and mild bilateral perihilar infiltrates. Dictated by: Dictated on workstation # [id number]
--- NOTE | 2021-12-24 11:27 | Diagnostic Imaging Report ---
CLINICAL INDICATION: Patient with altered mental status. EXAM: Axial CT scan of the brain performed without IV contrast with sagittal and coronal reformatted images. Auto Exposure Controls were utilized during the CT exam to meet ALARA standards for radiation dose reduction. COMPARISON: MRI of the brain without contrast dated 05/14/2021.. FINDINGS: There is skull streak artifact which obscures portions of the brainstem, posterior fossa, and portions of the brain near the skull. 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 This arachnoid cyst measures 4.7 cm x 3.7 cm in axial reformations. This is also seen on the prior MRI of the brain. There is no evidence of acute cerebral infarct, intracranial hemorrhage, or gross mass effect. The brain parenchymal volume appears appropriate for patient's age. There are small patchy areas of low-density involving white matter both cerebral hemispheres likely representing chronic small vessel ischemic disease. There is normal da silva-white matter distinction. There is no significant midline shift or herniation. There is no evidence of hydrocephalus. The basal cisterns are unremarkable. The skull, extracranial soft tissue, and orbits are unremarkable. There is mild mucosal thickening involving right maxillary sinus. Temporal bones show no significant abnormality. IMPRESSION: 1: There is no evidence of acute intracranial process. 2: Age-related brain parenchymal changes with chronic small vessel ischemic disease. 3: There is no significant change involving the arachnoid cyst in the left middle cranial fossa region. 4: There is mild right maxillary sinus disease. Dictated by: Dictated on workstation # [id number]
--- NOTE | 2021-12-24 13:33 | Physical Therapy Daily Note ---
PT Daily Note-Current Subjective Pt. not responsive. Transfers SCALE: Activities may be completed with or without assistive devices. 5-Acvkmppexv-ffcedmg completes the activity by him/herself with no assistance from a helper. 5-Set-up or Clean-up Assistance-helper sets up or cleans up; patient completes activity. Vidalia assists only prior to or following the activity. 4-Supervision or Touching Assistance-helper provides verbal cues and/or touching/steadying and/or contact guard assistance as patient completes activity. Assistance may be provided throughout the activity or intermittently. 3-Partial/Moderate Assistance-helper does LESS THAN HALF the effort. Vidalia lifts, holds or supports trunk or limbs, but provides less than half the effort. 2-Substantial/Maximal Assistance-helper does MORE THAN HALF the effort. Vidalia lifts or holds trunk or limbs and provides more than half the effort. 6-Vepnrzajz-lcrqbl does ALL the effort. Patient does none of the effort to complete the activity. Or, the assistance of 2 or more helpers is required for the patient to complete the activity. If activity was not attempted, code reason: 7-Patient Refused. 9-Not Applicable-not attempted and the patient did not perform the activity before the current illness, exacerbation or injury. 10-Not Attempted due to Environmental Limitations-(lack of equipment, weather restraints, etc.). 88-Not Attempted due to Medical Conditions or Safety Concerns. Treatments consulted with RN who states pt is ot able to participate in Rx and is likely declining quickly, recommends no Rx Assessment Current Status: Hold Per Dr/Nursing declining medical status PT Insurance Underwriting Assistant Goals Insurance Underwriting Assistant Goals PT Insurance Underwriting Assistant Goals Time Frame: Dec 29, 2021 Roll Left & Right (QC): 6 Sit to Lying (QC): 4 Lying-Sitting on Side/Bed(QC): 4 Sit to Stand (QC): 4 Chair/Axf-wd-Nzpkx Xfer(QC): 4 Walk 10 feet (QC): 4 PT Plan Treatment/Plan Treatment Plan: Discontinue PT Treatment Plan: Bed Mobility, Education, Functional Activity Liana, Functional Strength, Gait, Safety, Therapeutic Exercise, Transfers Treatment Duration: Dec 29, 2021 Frequency: 6 times per week Estimated Hrs Per Day: .25 hour per day Patient and/or Family Agrees t: Yes Time/GCodes Time In: 1325 Time Out: 1325 Total Billed Treatment Time: 0 Total Billed Treatment 1,no Rx, no Chg LISSA ALVARADO INSPECTOR TYPE Dec 24, 2021 13:33
--- NOTE | 2021-12-24 17:54 | Consultation - Surgery ---
History of Present Illness History of Present Illness Patient Consulted On(layla/time) 12/24/21 17:22 Time Seen by Provider: 13:58 Reason for Visit: Atrial fibrillation History of Present Illness Surgery asked to consult regarding right arm. HPI per IM: This is an 85-year-old male clinic patient of [facility] who I assessed at [facility] ER and transferred to [facility] to higher level of care due to BiPAP requirement. Patient has dementia and has had significant problems since falling and suffering a large laceration requiring Dr. Simon repair the day before presenting back to [facility] ER with severe weakness. Upon further questioning he does have a history of dementia and he has had a decline in overall function for the past year once he acquired a brown recluse spider bite last summer then recently had the first of the year had a scalp skin cancer requiring a great deal of medication who required BiPAP due to respiratory acidosis and CO2 retention. at the bedside updated on the plan he was placed on Rocephin for UTI and we will monitor him closely and consult cardiology. Source: patient, family, RN/, old records When I spoke to the pt's she told me that he has been falling lately and his dementia is getting worse. She stated that he hit his head last winter after falling in the bathtub and has been getting worse since then. He fell the other night and had a large laceration to his right elbow, went to [facility] and had laceration repair by the PEDIATRIC PATHOLOGIST in the ER. The also states that he has had a bad night and is not really talking; in addition, she is concerned because his arm is still bleeding. Plus, his fingers are swollen and purple right now. Allergies and Home Medications Allergies Coded Allergies: pregabalin (Verified Allergy, Unknown, 02/06/18) Patient Home Medication List Home Medication List Reviewed: Yes Acetaminophen (Tylenol Extra Strength) 500 Mg Tablet, 500-1,000 MG PO Q8H PRN for PAIN-MILD (1-4), (Reported) Entered as Reported by: MEME KELLOGG on 12/22/21913 Last Action: Held Amlodipine Besylate (Amlodipine Besylate) 10 Mg Tablet, 10 MG PO 1900, (Repor caprice) Entered as Reported by: MEME KELLOGG on 12/22/21913 Last Action: Continued Apixaban (Eliquis) 5 Mg Tablet, 5 MG PO BID, (Reported) Entered as Reported by: MEME KELLOGG on 12/22/21913 Last Action: Held Ascorbate Calcium/Bioflavonoid (Jossy-C 500 mg Tablet) 500 Mg-200 Mg Tablet, 2 EACH PO DAILY, (Reported) Entered as Reported by: MEME KELLOGG on 12/22/21913 Last Action: Converted Cholecalciferol (Vitamin D3) (Vitamin D3) 25 Mcg (1000 Unit) Tablet, 25 MCG PO BID, (Reported) Entered as Reported by: MEME KELLOGG on 12/22/21913 Last Action: Continued Clobetasol Propionate (Clobetasol Propionate) 0.05 % Cream..g., 1 APPLIC TOP BID PRN for RASH, (Reported) Entered as Reported by: MEEM KELLOGG on 12/22/211106 Last Action: Held Doxazosin Mesylate (Doxazosin Mesylate) 2 Mg Tablet, 2 MG PO 0, (Reported) Entered as Reported by: MEME KELLOGG on 12/22/21913 Last Action: Continued Ezetimibe (Ezetimibe) 10 Mg Tablet, 10 MG PO 1899, (Reported) Entered as Reported by: MEME KELLOGG on 12/22/21913 Last Action: Continued Finasteride (Finasteride) 5 Mg Tablet, 5 MG PO DAILY, (Reported) Entered as Reported by: MEME KELLOGG on 12/22/21913 Last Action: Continued Ketoconazole (Ketoconazole) 2 % Cream..g., 1 APPLIC TOP BID, (Reported) Entered as Reported by: MEME KELLOGG on 12/22/211106 Last Action: Continued L.acidoph & Paracasei,B.lactis (Probiotic) 10 Billion Cell Capsule, 1 EACH PO DAILY, (Reported) Entered as Reported by: MEME KELLOGG on 12/22/21913 Last Action: Converted Lisinopril (Lisinopril) 20 Mg Tablet, 20 MG PO DAILY, (Reported) Entered as Reported by: MEME KELLOGG on 12/22/21913 Last Action: Continued Memantine HCl (Memantine HCl) 5 Mg Tablet, 5 MG PO BID, (Reported) Entered as Reported by: MEME KELLOGG on 6/27/22 1107 Last Action: Continued Paroxetine HCl (Paroxetine HCl) 20 Mg Tablet, 20 MG PO HS, (Reported) Entered as Reported by: MEME KELLOGG on 12/22/21913 Last Action: Continued Tamsulosin HCl (Flomax) 0.4 Mg Cap, 0.4 MG PO 1800, (Reported) Entered as Reported by: MEME KELLOGG on 12/22/21913 Last Action: Continued [Nutriferon] , 1 EA PO BID, (Reported) Entered as Reported by: MEME KELLOGG on 12/22/21913 Last Action: Held [[place] Guard] , 1 EA PO BID, (Reported) Entered as Reported by: MEME KELLOGG on 12/22/21913 Last Action: Held Discontinued Medications Cefdinir (Cefdinir) 300 Mg Capsule, 300 MG PO BID Discontinued Reason: No Longer Taking Prescribed by: BRIDGER GORMAN on 02/06/18 1430 Last Action: Discontinued Past Sputvqz-Cavdby-Rezoge Hx Patient Social History Smoking Status: Never a Smoker Recent Hopitalizations: No Alcohol Use?: No Have you traveled recently?: No Surgeries History of Surgeries: Yes (HERNIA) Surgeries: Bowel Surgery Respiratory History of Respiratory Disorde: No Cardiovascular History of Cardiac Disorders: Yes Cardiac Disorders: Hypertension Neurological Neurological Disorders: Dementia Genitourinary History of Genitourinary Disor: Yes Genitourinary Disorders: Prostate Problems Gastrointestinal History of Gastrointestinal Di: No Musculoskeletal History of Musculoskeletal Dis: No 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) Cancer History of Cancer: No Psychosocial History of Psychiatric Problem: No Family Medical History Significant Family History: Other Conditions/Hx ( is unsure) Review of Systems-General ROS-Unable to Obtain: pt unable to answer, knows some Genitourinary: No hematuria; hesitancy Psychiatric/Neurological: Headache Physical Exam-General Problems Physical Exam Vital Signs Vital Signs - First Documented 12/20/21 12/20/21 12/20/21 12/20/21 12/20/21 16:20 16:39 18:43 19:30 20:32 Temp 36.5 Pulse 70 Resp 19 B/P (MAP) 101/70 (80) Pulse Ox 98 O2 Delivery Nasal Cannula O2 Flow Rate 8.00 FiO2 30 Capillary Refill : General Appearance: mild distress, other (chronically ill) Respiratory: lungs clear, normal breath sounds, no respiratory distress, no accessory muscle use Cardiovascular: regular rate, rhythm, no murmur Gastrointestinal: soft, distended Extremities: swelling, other (fingers are swollen and purple (like draining hematoma), rest of the arm is wrapped with JAILYN wrap and some blood seen at elbow area) Neurologic/Psychiatric: other (pt non-responisve) Data Review Labs Laboratory Tests 12/24/21 06:11: White Blood Count 10.5, Red Blood Count 3.32L, Hemoglobin 10.7L, Hematocrit 34L, Mean Corpuscular Volume 102H, Mean Corpuscular Hemoglobin 32, Mean Corpuscular Hemoglobin Concent 32, Red Cell Distribution Width 13.6, Platelet Count 179, Me an Platelet Volume 11.4, Immature Granulocyte % (Auto) 1, Neutrophils (%) (Auto) 77H, Lymphocytes (%) (Auto) 8L, Monocytes (%) (Auto) 11, Eosinophils (%) (Auto) 3, Basophils (%) (Auto) 1, Neutrophils # (Auto) 8.1H, Lymphocytes # (Auto) 0.8L, Monocytes # (Auto) 1.1H, Eosinophils # (Auto) 0.3, Basophils # (Auto) 0.1, Immature Granulocyte # (Auto) 0.1, Sodium Level 144, Potassium Level 4.2, Chloride Level 106, Carbon Dioxide Level 28, Anion Gap 10, Blood Urea Nitrogen 39H, Creatinine 1.68H, Estimat Glomerular Filtration Rate 40, BUN/Creatinine Ratio 23, Glucose Level 114H, Calcium Level 8.4L, Corrected Calcium 9.0, Total Bilirubin 0.9, Aspartate Amino Transf (AST/SGOT) 39H, Alanine Aminotransferase (ALT/SGPT) 17, Alkaline Phosphatase 45, Total Protein 5.3L, Albumin 3.2, Proc alcitonin 0.13H 12/24/21 10:15: Lactic Acid Level 0.64 Assessment/Plan Assessment/Plan Assessment/Plan Right arm Laceration Continued bleeding from laceration Swelling and Edema right arm Dementia I talked with the and discussed options. She stated that his spine is bad and his dementia is getting worse. She is also concerned because his arm is still bleeding. I told her that his fingers are swollen and purple because of the blood draining down; he needs to elevate his arm. Also, at this point I would not do anything agressive and would continue compression of the area. I also told the pt's that what we need to do should be based on what is best for patient and will it help him. Clinical Quality Measures DVT/VTE Risk/Contraindication: Contraindications-Pharm: Pt at low risk Other: right arm laceration bleed PAGE SIMON DO Dec 24, 2021 17:54
[2021-12-24] MEDS: TAMSULOSIN 0.4 MG (FLOMAX) CAP PO SCH (18:24)
[2021-12-24] MEDS: eZETimibe 10 MG (ZETIA) TABLET PO SCH (18:24)
[2021-12-24] MEDS: doxAzosin 2 MG (CARDURA) TAB PO SCH (18:24)
[2021-12-24] MEDS: PARoxetine 20 MG (PAXIL) TAB PO SCH (21:54)
[2021-12-25] MEDS: HYDROcodone/APAP 5 MG/325 MG (LORTAB) TAB PO PRN ×2 (01:26→12:47)
[2021-12-25 03:09] VITALS: BP 116/66
[2021-12-25] MEDS: CEFEPIME INJECTION 1,000 MG in NS (IVPB) 50 ML IV SCH ×2 (04:59→12:55)
--- NOTE | 2021-12-25 05:59 | Progress Note - Hospitalist ---
Subjective HPI/CC On Admission Date Seen by Provider: Dec 25, 2021 Time Seen by Provider: 11:00 Chief complaint: Shortness of breath with confusion History of present illness: This is an 85-year-old male clinic patient of [facility] who I assessed at [facility] ER and transferred to [facility] to higher level of care due to BiPAP requirement. Patient has dementia and has had significant problems since falling and suffering a large laceration requiring Dr. Simon repair the day before presenting back to [facility] ER with severe weakness. Upon further questioning he does have a history of dementia and he has had a decline in overall function for the past year once he acquired a brown recluse spider bite last summer then recently had the first of the year had a scalp skin cancer requiring a great deal of medication who required BiPAP due to respiratory acidosis and CO2 retention. at the bedside updated on the plan he was placed on Rocephin for UTI and we will monitor him closely and consult cardiology. Focused Exam Lactate Level 12/24/21 10:15: Lactic Acid Level 0.64 Objective Exam Vital Signs Vital Signs Date Time Temp Pulse Resp B/P (MAP) Pulse Ox O2 Delivery O2 Flow Rate FiO2 12/25/21 16:05 12/25/21 12:54 Nasal Cannula 12/25/21 11:43 37.2 82 18 94 6.00 12/21/21 04:32 30 Capillary Refill : Results/Procedures Lab Laboratory Tests 12/25/21 05:22 Patient resulted labs reviewed. Assessment/Plan Assessment and Plan Assess & Plan/Chief Complaint Assessment: Acute respiratory insufficiency with hypercapnia and hypoxia CO2 retention Right arm laceration Presumed ERICA/OHA Dementia Delirium AF Pneumonia LEONA due to dehydration Urinary retention requiring wheat placement Plan: BiPAP [facility] closely Cardiology appreciated Hold OAC Abx Zyprexa tonight PT OT Wound care 12/24: CT head CXR Wheat cath Septic w/u Appearing more declined DNR Diagnosis/Problems Diagnosis/Problems (1) AMS (altered mental status) (2) Dementia (3) CO2 retention Clinical Quality Measures DVT/VTE Risk/Contraindication: Contraindications-Pharm: Pt at low risk Other: right arm laceration bleed DONNA WEN DO Dec 25, 2021 05:59
[2021-12-25 06:09] LABS: BASOPHILS % (AUTO) 0 % (0-10); EOSINOPHILS # (AUTO) 0.2 10^3/uL (0.0-0.3); EOSINOPHILS % (AUTO) 2 % (0-10); HEMATOCRIT 32 % (40-54); HEMOGLOBIN 10.2 g/dL (13.3-17.7); LYMPHOCYTES # (AUTO) 0.6 10^3/uL (1.0-4.0); LYMPHOCYTES % (AUTO) 6 % (12-44); MEAN CORPUSCULAR HEMOGLOBIN 32 pg (25-34); MEAN CORPUSCULAR HGB CONC 32 g/dL (32-36); MEAN CORPUSCULAR VOLUME 101 fL (80-99); MEAN PLATELET VOLUME 11.2 fL (9.0-12.2); MONOCYTES # (AUTO) 1.3 10^3/uL (0.0-1.0); MONOCYTES % (AUTO) 13 % (0-12); NEUTROPHILS # (AUTO) 7.7 10^3/uL (1.8-7.8); NEUTROPHILS % (AUTO) 77 % (42-75); PLATELET COUNT 167 10^3/uL (130-400)
[2021-12-25 06:32] LABS: ALBUMIN 3.1 GM/DL (3.2-4.5)
[2021-12-25 06:33] LABS: POTASSIUM 4.3 MMOL/L (3.6-5.0)
[2021-12-25 06:34] LABS: CALCIUM 8.1 MG/DL (8.5-10.1)
[2021-12-25 06:35] LABS: TOTAL PROTEIN 5.1 GM/DL (6.4-8.2)
[2021-12-25 06:37] LABS: BILIRUBIN,TOTAL 1.4 MG/DL (0.1-1.0)
[2021-12-25 06:39] LABS: CREATININE SERUM 1.21 MG/DL (0.60-1.30)
[2021-12-25 08:41] VITALS: BP 117/55
[2021-12-25] MEDS ORDERED: lisINopril 10 MG (PRINIVIL) TABLET PO SCH (09:00)
[2021-12-25] MEDS: ASCORBIC ACID (VIT C) 500 MG TABLET PO SCH (09:24)
[2021-12-25] MEDS: AZITHROMYCIN 250 MG TAB (ZITHROMAX) PO SCH (09:24)
[2021-12-25] MEDS: VITAMIN D3 25 MCG (1,000 UNITS) TABLET PO SCH (09:24)
[2021-12-25] MEDS: DOCUSATE SODIUM 100 MG (COLACE) CAP PO SCH (09:24)
[2021-12-25] MEDS: FINASTERIDE (PROSCAR) 5 MG TAB PO SCH (09:24)
[2021-12-25] MEDS: LACTOBACILLUS ACIDOPHILUS (PROBIOTIC) CAPSULE PO SCH (09:24)
[2021-12-25] MEDS: SENNOSIDES 8.6 MG (SENOKOT) TAB PO SCH (09:25)
[2021-12-25] MEDS: KETOCONAZOLE 2% CREAM 15 GM (NIZORAL) TOP SCH (09:25)
[2021-12-25] MEDS: MEMANTINE 5 MG (NAMENDA) TABLET PO SCH (09:25)
--- NOTE | 2021-12-25 10:43 | Physical Therapy Progress Note ---
Therapy Progress Note Patient on Hold per RN due to decline in status. PT will consult with nursing in a.m. on POC. YE WEBER PT Dec 25, 2021 10:43
[2021-12-25 11:43] VITALS: BP 121/60
--- NOTE | 2021-12-25 11:45 | Occ Therapy Progress Note ---
Therapy Progress Note Per PT report, patient on Hold per RN due to decline in status. OT will consult with nursing in a.m. on POC. DARCY CALHOUN Dec 25, 2021 11:45
[2021-12-25] MEDS ORDERED: TMSL.4C PO (12:48)
[2021-12-25] MEDS ORDERED: ASCO1TAB12 PO (12:48)
[2021-12-25] MEDS ORDERED: SNN187T PO (12:48)
[2021-12-25] MEDS ORDERED: ACET-2267 PO (12:48)
[2021-12-25] MEDS ORDERED: MEMA5TAB43 PO (12:48)
[2021-12-25] MEDS ORDERED: PARO20TA5 PO (12:48)
[2021-12-25] MEDS ORDERED: APIX5TAB PO (12:48)
[2021-12-25] MEDS ORDERED: CLOB15CR2 TOP (12:48)
[2021-12-25] MEDS ORDERED: CEFD300C3 PO (12:48)
[2021-12-25] MEDS ORDERED: DOCU100C37 PO (12:48)
[2021-12-25] MEDS ORDERED: EZET10TA49 PO (12:48)
[2021-12-25] MEDS ORDERED: DOXA2TAB2 PO (12:48)
[2021-12-25] MEDS ORDERED: LACT20SO2 PO (12:48)
[2021-12-25] MEDS ORDERED: ONDA4TAB11 PO (12:48)
[2021-12-25] MEDS ORDERED: CHOL10004 PO (12:48)
[2021-12-25] MEDS ORDERED: L.AC1CAP6 PO (12:48)
[2021-12-25] MEDS ORDERED: FINA5TAB6 PO (12:48)
[2021-12-25] MEDS ORDERED: ALPR.25T PO (12:48)
[2021-12-25] MEDS ORDERED: MELA3TAB39 PO (12:48)
[2021-12-25] MEDS ORDERED: ACHD5005 PO (12:48)
[2021-12-25] MEDS ORDERED: AMLO-251 PO (12:48)
[2021-12-25] MEDS ORDERED: KETO15CR2 TOP (12:48)
--- NOTE | 2021-12-25 12:52 | Progress Note - Surgery ---
Subjective Time Seen by a Provider: 09:37 Subjective/Events-last exam Pt seen and examined. His states he had a rough night, but actually had some lucid moments this am. She thinks his arm is better. Review of Systems unable to obtain Focused Exam Lactate Level 12/24/21 10:15: Lactic Acid Level 0.64 Objective Exam Vital Signs Date Time Temp Pulse Resp B/P (MAP) Pulse Ox O2 Delivery O2 Flow Rate FiO2 12/25/21 11:43 37.2 82 18 121/60 (80) 94 Nasal Cannula 6.00 12/25/21 08:41 36.2 83 18 117/55 (75) 91 Nasal Cannula 6.00 12/25/21 03:09 36.0 65 20 116/66 (83) 92 Nasal Cannula 6.00 12/24/21 23:45 37.1 75 20 106/64 (78) 92 Nasal Cannula 5.50 12/24/21 21:00 High Flow N/C 2.00 12/24/21 20:00 36.7 73 20 95/61 (72) 90 Nasal Cannula 4.00 12/24/21 16:00 36.5 84 20 92/57 (69) 93 Nasal Cannula 4.00 I & O 12/25/21 07:00 Intake Total 600 ml Output Total 1250 ml Balance -650 ml Capillary Refill : General Appearance: No Apparent Distress, Chronically ill HEENT: Moist Mucous Membranes Respiratory: Lungs Clear, Normal Breath Sounds, Decreased Breath Sounds Cardiovascular: Regular Rate, Rhythm Gastrointestinal: soft, distended Extremity: Other (right arm still wrapped, nurse states it is still oozing, appears to be less swollen and fingers actually look better than yesterday (less swollen and less bruising)) Neurologic/Psychiatric: Disoriented Results Lab Laboratory Tests 12/25/21 05:22: White Blood Count 10.0, Red Blood Count 3.21L, Hemoglobin 10.2L, Hematocrit 32L, Mean Corpuscular Volume 101H, Mean Corpuscular Hemoglobin 32, Mean Corpuscular Hemoglobin Concent 32, Red Cell Distribution Width 13.6, Platelet Count 167, Mean Platelet Volume 11.2, Immature Granulocyte % (Auto) 1, Neutrophils (%) (Auto) 77H, Lymphocytes (%) (Auto) 6L, Monocytes (%) (Auto) 13H, Eosinophils (%) (Auto) 2, Basophils (%) (Auto) 0, Neutrophils # (Auto) 7.7, Lymphocytes # (Auto) 0.6L, Monocytes # (Auto) 1.3H, Eosinophils # (Auto) 0.2, Basophils # (Auto) 0.0, Immature Granulocyte # (Auto) 0.1, Sodium Level 145, Potassium Level 4.3, Chloride Level 110H, Carbon Dioxide Level 26, Anion Gap 9, Blood Urea Nitrogen 43H, Creatinine 1.21, Estimat Glomerular Filtration Rate 59, BUN/Creatinine Ratio 36, Glucose Level 122H, Calcium Level 8.1L, Corrected Calcium 8.8, Total Bilirubin 1.4H, Aspartate Amino Transf (AST/SGOT) 67H, Alanine Aminotransferase (ALT/SGPT) 22, Alkaline Phosphatase 43, Total Protein 5.1L, Albumin 3.1L Assessment/Plan Assessment/Plan Assessment/Plan Right arm Laceration Continued bleeding from laceration Swelling and Edema right arm Dementia I talked with the and told her I still recommend non-operative management with continued compression of the area. Clinical Quality Measures DVT/VTE Risk/Contraindication: Contraindications-Pharm: Pt at low risk Other: right arm laceration bleed PAGE CARLOS DO Dec 25, 2021 12:52
--- NOTE | 2021-12-25 12:54 | Discharge Inst-Skilled Nursing ---
Discharge Inst-Skilled NF Reconcile Patient Problems Problems Reviewed?: Yes Chief Complaint Chief complaint: Shortness of breath with confusion History of present illness: This is an 85-year-old male clinic patient of [facility] who I assessed at [facility] ER and transferred to [facility] to higher level of care due to BiPAP requirement. Patient has dementia and has had significant problems since falling and suffering a large laceration requiring Dr. Simon repair the day before presenting back to [facility] ER with severe weakness. Upon further questioning he does have a history of dementia and he has had a decline in overall function for the past year once he acquired a brown recluse spider bite last summer then recently had the first of the year had a scalp skin cancer requiring a great deal of medication who required BiPAP due to respiratory acidosis and CO2 retention. at the bedside updated on the plan he was placed on Rocephin for UTI and we will monitor him closely and consult cardiology. Patient Instructions Patient Problems: Debility s/p PNA Dementia Consult/Follow Up/Orders Follow Up Appt.: Dr Wen/Tracie Mixon [facility] Skilled NF Admit to: Via [facility] Certification ([facility]) I certify that SNF services are required to be given on an inpatient basis because of the above named patient's need for residential care on a continuing basis for the conditions(s) for which he/she was receiving inpatient hospital services prior to his/her transfer to the SNF. Correction Facility Order: Nursing Services, Clarifier-Evaluate & Treat, Physical Therapy-Evaluate & Treat, Speech Language-Evaluate & Treat, Wound Care-Eval/Treat Oxygen Delivery Method: Nasal Cannula (3-6 L/min) Discharge Diet: Soft Diet Daily Activity as Tolerated: Yes Resuscitation Status: Do Not Resuscitate New & Resume Previous Orders New Medications: Cefdinir (Cefdinir) 300 Mg Capsule 300 MG PO BID, #8 CAP ALPRAZolam (Xanax Tablet) 0.25 Mg Tab 0.5 MG PO Q3HR PRN for ANXIETY, #20 TAB Docusate Sodium (Docusate Sodium) 100 Mg Capsule 100 MG PO BID, #60 CAP Hydrocodone Bit/Acetaminophen (HYDROcodone/APAP 5 MG/325 MG TAB) 1 Tab Tab 1 EA PO Q4H PRN for PAIN-MODERATE (5-7), #20 TAB Lactulose (Lactulose) 20 Gram/30 Ml Solution 20 GM PO BID PRN for CONSTIPATION-4TH LINE, #120 ML Melatonin (Melatonin) 3 Mg Tablet 3 MG PO HS PRN for SLEEP, #30 TAB Ondansetron (Ondansetron Odt) 4 Mg Tab.rapdis 4 MG PO Q6H PRN for NAUSEA/VOMITING-1ST LINE, #12 TAB Sennosides (Senna Lax) 8.6 Mg Tablet 8.6 MG PO BID, #60 TAB Changed Medications: Apixaban (Eliquis) 5 Mg Tablet 5 MG PO BID, #60 TAB (Medication details modified) Hold for 7 days until right arm stops bleeding, start 12/31/21 Continued Medications: Acetaminophen (Tylenol Extra Strength) 500 Mg Tablet 500-1000 MG PO Q8H PRN for PAIN-MILD (1-4), #30 TAB (This prescription has been renewed) Amlodipine Besylate (Amlodipine Besylate) 10 Mg Tablet 10 MG PO 1900, #30 TAB (This prescription has been renewed) Ascorbate Calcium/Bioflavonoid (Jossy-C 500 mg Tablet) 500 Mg-200 Mg Tablet 2 EACH PO DAILY, #30 TAB (This prescription has been renewed) Cholecalciferol (Vitamin D3) (Vitamin D3) 25 Mcg (1000 Unit) Tablet 25 MCG PO BID, #30 TAB (This prescription has been renewed) Clobetasol Propionate (Clobetasol Propionate) 0.05 % Cream..g. 1 APPLIC TOP BID PRN for RASH, #1 EA (This prescription has been renewed) Doxazosin Mesylate (Doxazosin Mesylate) 2 Mg Tablet 2 MG PO 1900, #30 TAB (This prescription has been renewed) Ezetimibe (Ezetimibe) 10 Mg Tablet 10 MG PO 1900, #30 TAB (This prescription has been renewed) Finasteride (Finasteride) 5 Mg Tablet 5 MG PO DAILY, #30 TAB (This prescription has been renewed) Ketoconazole (Ketoconazole) 2 % Cream..g. 1 APPLIC TOP BID, #1 EA (This prescription has been renewed) APPLY TO AFFECTED AREA ON EARS L.acidoph & Paracasei,B.lactis (Probiotic) 10 Billion Cell Capsule 1 EACH PO DAILY, #30 CAP (This prescription has been renewed) Memantine HCl (Memantine HCl) 5 Mg Tablet 5 MG PO BID, #60 TAB (This prescription has been renewed) LAST FILLED 08-19-2021 #60/30 DAY SUPPLY Paroxetine HCl (Paroxetine HCl) 20 Mg Tablet 20 MG PO HS, #30 TAB (This prescription has been renewed) Tamsulosin HCl (Flomax) 0.4 Mg Cap 0.4 MG PO 1800, #30 CAP (This prescription has been renewed) TAKES 30 MINUTES AFTER DINNER Discontinued Medications: Lisinopril (Lisinopril) 20 Mg Tablet 20 MG PO DAILY, TAB [Nutriferon] () 1 EA PO BID [Tulia Guard] () 1 EA PO BID Other Instructions Keep wheat catheter in place until ambulatory and able to attempt to void Allison Wen Dec 25, 2021 12:51 ALLISON WEN DO Dec 25, 2021 12:54
--- NOTE | 2021-12-25 12:54 | Discharge Summary ---
Diagnosis/Chief Complaint Date of Admission Dec 20, 2021 at 16:14 Date of Discharge Discharge Date: Dec 25, 2021 Discharge Diagnosis Assessment: Acute respiratory insufficiency with hypercapnia and hypoxia CO2 retention Right arm laceration Presumed ERICA/OHA Dementia Delirium AF Pneumonia LEONA due to dehydration Urinary retention requiring wheat placement Plan: BiPAP at night assistant closely Cardiology appreciated Hold OAC Abx Zyprexa tonight PT OT Wound care 12/24: CT head CXR Wheat cath Septic w/u Appearing more declined DNR Discharge Summary Discharge Physical Examination Allergies: Coded Allergies: pregabalin (Verified Allergy, Unknown, 02/06/18) Vitals & I&Os Vital Signs Date Time Temp Pulse Resp B/P (MAP) Pulse Ox O2 Delivery O2 Flow Rate FiO2 12/25/21 16:05 12/25/21 12:54 Nasal Cannula 12/25/21 11:43 37.2 82 18 94 6.00 12/21/21 04:32 30 General Appearance: Other (lethargic) Respiratory: Clear to Auscultation Cardiovascular: Regular Rate Hospital Course Was the Problem List Reviewed?: Yes Pt had an uneventful 6 day hospital course after he was admitted from [facility] ER. He is BiPAP dependent due to CO2 narcosis with dementia flair. He was diagnosed with pneumonia. He had urinary retention requiring a wheat catheter. Pt continued to decline. CT scan showed no evidence of any abnormality. Chest x-ray showed pulmonary congestion. He required 3-6 L of oxygen. He remained a DNR. is at the bedside. I explained to her in depth regarding the options. She declined any further workup like a lumbar puncture and MRI. He was sent to [facility]. If he continues to decline he will need hospice. He will be on my service there at [facility]. Labs (last 24 hrs) Laboratory Tests 12/20/21 17:30: Blood Gas Puncture Site LT RAD, Blood Gas Patient Temperature 37.1, Arterial Blood pH 7.30*L, Arterial Blood Partial Pressure CO2 64H, Arterial Blood Partial Pressure O2 95H, Arterial Blood HCO3 31H, Arterial Blood Total CO2 32.5H, Arterial Blood Oxygen Saturation 98, Arterial Blood Base Excess 4.6H, Constantino Test YES-POS, Blood Gas Ventilator Setting NO, Blood Gas Inspired Oxygen 10 L 12/21/21 05:59: White Blood Count 10.5, Red Blood Count 4.14L, Hemoglobin 13.4, Hematocrit 41, Mean Corpuscular Volume 98, Mean Corpuscular Hemoglobin 32, Mean Corpuscular Hemoglobin Concent 33, Red Cell Distribution Width 13.4, Platelet Count 143, Mean Platelet Volume 11.2, Immature Granulocyte % (Auto) 1, Neutrophils (%) (Auto) 77H, Lymphocytes (%) (Auto) 8L, Monocytes (%) (Auto) 13H, Eosinophils (%) (Auto) 1, Basophils (%) (Auto) 0, Neutrophils # (Auto) 8.1H, Lymphocytes # (Auto) 0.9L, Monocytes # (Auto) 1.4H, Eosinophils # (Auto) 0.1, Basophils # (Auto) 0.0, Immature Granulocyte # (Auto) 0.1, Sodium Level 144, Potassium Level 3.8, Chloride Level 106, Carbon Dioxide Level 28, Anion Gap 10, Blood Urea Nitrogen 17, Creatinine 0.89, Estimat Glomerular Filtration Rate 85, BUN/Creatinine Ratio 19, Glucose Level 116H, Calcium Level 8.4L, Corrected Calcium 8.8, Total Bilirubin 1.2H, Aspartate Amino Transf (AST/SGOT) 14, Alanine Aminotransferase (ALT/SGPT) 10, Alkaline Phosphatase 56, Total Protein 5.5L, Albumin 3.5 12/21/21 11:24: Blood Gas Puncture Site NA, Blood Gas Patient Temperature 36.4, Arterial Blood pH 7.35L, Arterial Blood Partial Pressure CO2 59H, Arterial Blood Partial Pre ssure O2 82, Arterial Blood HCO3 32H, Arterial Blood Total CO2 33.5H, Arterial Blood Oxygen Saturation 98, Arterial Blood Base Excess 6.1H, Constantino Test NA, Blood Gas Ventilator Setting NO, Blood Gas Inspired Oxygen 45% 12/22/21 05:12: White Blood Count 11.4H, Red Blood Count 3.82L, Hemoglobin 12.1L, Hematocrit 38L , Mean Corpuscular Volume 100H, Mean Corpuscular Hemoglobin 32, Mean Corpuscular Hemoglobin Concent 32, Red Cell Distribution Width 13.5, Platelet Count 155, Mean Platelet Volume 11.1, Immature Granulocyte % (Auto) 1, Neutrophils (%) (Auto) 80H, Lymphocytes (%) (Auto) 6L, Monocytes (%) (Auto) 12, Eosinophils (%) (Auto) 0, Basophils (%) (Auto) 0, Neutrophils # (Auto) 9.2H, Lymphocytes # (Auto) 0.7L, Monocytes # (Auto) 1.4H, Eosinophils # (Auto) 0.0, Basophils # (Auto) 0.0, Immature Granulocyte # (Auto) 0.1, Sodium Level 145, Potassium Level 3.8, Chloride Level 107, Carbon Dioxide Level 27, Anion Gap 11, Blood Urea Nitrogen 15, Creatinine 0.87, Estimat Glomerular Filtration Rate 86, BUN /Creatinine Ratio 17, Glucose Level 124H, Calcium Level 8.5, Corrected Calcium 9.0, Total Bilirubin 1.4H, Aspartate Amino Transf (AST/SGOT) 18, Alanine Aminotransferase (ALT/SGPT) 10, Alkaline Phosphatase 52, Total Protein 5.5L, Albumin 3.4, Magnesium Level 2.1, Triglycerides Level 113, Cholesterol Level 176, LDL Cholesterol Direct 121, VLDL Cholesterol 23, HDL Cholesterol 38L 12/23/21 05:24: White Blood Count 9.0, Red Blood Count 3.29L, Hemoglobin 10.5L, Hematocrit 33L, Mean Corpuscular Volume 101H, Mean Corpuscular Hemoglobin 32, Mean Corpuscular Hemoglobin Concent 32, Red Cell Distribution Width 13.7, Platelet Count 159, Mean Platelet Volume 11.4, Immature Granulocyte % (Auto) 1, Neutrophils (%) (Auto) 81H, Lymphocytes (%) (Auto) 7L, Monocytes (%) (Auto) 9, Eosinophils (%) (Auto) 1, Basophils (%) (Auto) 0, Neutrophils # (Auto) 7.3, Lymphocytes # (Auto) 0.7L, Monocytes # (Auto) 0.9, Eosinophils # (Auto) 0.1, Basophils # (Auto) 0.0, Immature Granulocyte # (Auto) 0.1, Neutrophils % (Manual) 87, Lymphocytes % (Manual) 7, Monocytes % (Manual) 4, Eosinophils % (Manual) 1, Band Neutrophils 1, Blood Morphology Comment NORMAL, Sodium Level 145, Potassium Level 4.4, Chloride Level 107, Carbon Dioxide Level 29, Anion Gap 9, Blood Urea Nitrogen 23H, Creatinine 1.05, Estimat Glomerular Filtration Rate 70, BUN/Creatinine Ratio 22, Glucose Level 137H, Calcium Level 8.4L, Corrected Calcium 9.1, Total Bilirubin 0.8, Aspartate Amino Transf (AST/SGOT) 16, Alanine Aminotransferase (ALT/SGPT) 11, Alkaline Phosphatase 47, Total Protein 5.0L, Albumin 3.1L 12/24/21 06:11: White Blood Count 10.5, Red Blood Count 3.32L, Hemoglobin 10.7L, Hematocrit 34L, Mean Corpuscular Volume 102H, Mean Corpuscular Hemoglobin 32, Mean Corpuscular Hemoglobin Concent 32, Red Cell Distribution Width 13.6, Platelet Count 179, Mean Platelet Volume 11.4, Immature Granulocyte % (Auto) 1, Neutrophils (%) (Auto) 77H, Lymphocytes (%) (Auto) 8L, Monocytes (%) (Auto) 11, Eosinophils (%) (Auto) 3, Basophils (%) (Auto) 1, Neutrophils # (Auto) 8.1H, Lymphocytes # (Auto) 0.8L, Monocytes # (Auto) 1.1H, Eosinophils # (Auto) 0.3, Basophils # (Auto) 0.1, Immature Granulocyte # (Auto) 0.1, Sodium Level 144, Potassium Level 4.2, Chloride Level 106, Carbon Dioxide Level 28, Anion Gap 10, Blood Urea Ni trogen 39H, Creatinine 1.68H, Estimat Glomerular Filtration Rate 40, BUN/Creatinine Ratio 23, Glucose Level 114H, Calcium Level 8.4L, Corrected Calcium 9.0, Total Bilirubin 0.9, Aspartate Amino Transf (AST/SGOT) 39H, Alanine Aminotransferase (ALT/SGPT) 17, Alkaline Phosphatase 45, Total Protein 5.3L, Albumin 3.2, Procalcitonin 0.13H 12/24/21 10:15: Lactic Acid Level 0.64 12/25/21 05:22: White Blood Count 10.0, Red Blood Count 3.21L, Hemoglobin 10.2L, Hematocrit 32L, Mean Corpuscular Volume 101H, Mean Corpuscular Hemoglobin 32, Mean Corpuscular Hemoglobin Concent 32, Red Cell Distribution Width 13.6, Platelet Count 167, Mean Platelet Volume 11.2, Immature Granulocyte % (Auto) 1, Neutrophils (%) (Auto) 77H, Lymphocytes (%) (Auto) 6L, Monocytes (%) (Auto) 13H, Eosinophils (%) (Auto) 2, Basophils (%) (Auto) 0, Neutrophils # (Auto) 7.7, Lymphocytes # (Auto) 0.6L, Monocytes # (Auto) 1.3H, Eosinophils # (Auto) 0.2, Basophils # (Auto) 0.0, Immature Granulocyte # (Auto) 0.1, Sodium Level 145, Potassium Level 4.3, Chloride Level 110H, Carbon Dioxide Level 26, Anion Gap 9, Blood Urea Nitrogen 43H, Creatinine 1.21, Estimat Glomerular Filtration Rate 59, BUN/Creatinine Ratio 36, Glucose Level 122H, Calcium Level 8.1L, Corrected Calcium 8.8, Total Bilirubin 1.4H, Aspartate Amino Transf (AST/SGOT) 67H, Alanine Aminotransferase (ALT/SGPT) 22, Alkaline Phosphatase 43, Total Protein 5.1L, Albumin 3.1L Pending Labs Laboratory Tests 12/20/21 17:30: Blood Gas Puncture Site LT RAD, Blood Gas Patient Temperature 37.1, Arterial Blood pH 7.30, Arterial Blood Partial Pressure CO2 64, Arterial Blood Partial Pressure O2 95, Arterial Blood HCO3 31, Arterial Blood Total CO2 32.5, Arterial Blood Oxygen Saturation 98, Arterial Blood Base Excess 4.6, Constantino Test YES-POS, Blood Gas Ventilator Setting NO, Blood Gas Inspired Oxygen 10 L 12/21/21 05:59: White Blood Count 10.5, Red Blood Count 4.14, Hemoglobin 13.4, Hematocrit 41, Mean Corpuscular Volume 98, Mean Corpuscular Hemoglobin 32, Mean Corpuscular Hemoglobin Concent 33, Red Cell Distribution Width 13.4, Platelet Count 143, Mean Platelet Volume 11.2, Immature Granulocyte % (Auto) 1, Neutrophils (%) (Auto) 77, Lymphocytes (%) (Auto) 8, Monocytes (%) (Auto) 13, Eosinophils (%) (Auto) 1, Basophils (%) (Auto) 0, Neutrophils # (Auto) 8.1, Lymphocytes # (Auto) 0.9, Monocytes # (Auto) 1.4, Eosinophils # (Auto) 0.1, Basophils # (Auto) 0.0, Immature Granulocyte # (Auto) 0.1, Sodium Level 144, Potassium Level 3.8, Chloride Level 106, Carbon Dioxide Level 28, Anion Gap 10, Blood Urea Nitrogen 17, Creatinine 0.89, Estimat Glomerular Filtration Rate 85, BUN/Creatinine Ratio 19, Glucose Level 116, Calcium Level 8.4, Corrected Calcium 8.8, Total Bilirubin 1.2, Aspartate Amino Transf (AST/SGOT) 14, Alanine Aminotransferase (ALT/SGPT) 10, Alkaline Phosphatase 56, Total Protein 5.5, Albumin 3.5 12/21/21 11:24: Blood Gas Puncture Site NA, Blood Gas Patient Temperature 36.4, Arterial Blood pH 7.35, Arterial Blood Partial Pressure CO2 59, Arterial Blood Partial Pressure O2 82, Arterial Blood HCO3 32, Arterial Blood Total CO2 33.5, Arterial Blood Oxygen Saturation 98, Arterial Blood Base Excess 6.1, Constantino Test NA, Blood Gas Ventilator Setting NO, Blood Gas Inspired Oxygen 45% 12/22/21 05:12: White Blood Count 11.4, Red Blood Count 3.82, Hemoglobin 12.1, Hematocrit 38, Mean Corpuscular Volume 100, Mean Corpuscular Hemoglobin 32, Mean Corpuscular Hemoglobin Concent 32, Red Cell Distribution Width 13.5, Platelet Count 155, Mean Platelet Volume 11.1, Immature Granulocyte % (Auto) 1, Neutrophils (%) (Auto) 80, Lymphocytes (%) (Auto) 6, Monocytes (%) (Auto) 12, Eosinophils (%) (Auto) 0, Basophils (%) (Auto) 0, Neutrophils # (Auto) 9.2, Lymphocytes # (Auto) 0.7, Monocytes # (Auto) 1.4, Eosinophils # (Auto) 0.0, Basophils # (Auto) 0.0, Immature Granulocyte # (Auto) 0.1, Sodium Level 145, Potassium Level 3.8, Chloride Level 107, Carbon Dioxide Level 27, Anion Gap 11, Blood Urea Nitrogen 15, Creatinine 0.87, Estimat Glomerular Filtration Rate 86, BUN/Creatinine Ratio 17, Glucose Level 124, Calcium Level 8.5, Corrected Calcium 9.0, Total Bilirubin 1.4, Aspartate Amino Transf (AST/SGOT) 18, Alanine Aminotransferase (ALT/SGPT) 10, Alkaline Phosphatase 52, Total Protein 5.5, Albumin 3.4, Magnesium Level 2.1, Triglycerides Level 113, Cholesterol Level 176, LDL Cholesterol Direct 121, VLDL Cholesterol 23, HDL Cholesterol 38 12/23/21 05:24: White Blood Count 9.0, Red Blood Count 3.29, Hemoglobin 10.5, Hematocrit 33, Mean Corpuscular Volume 101, Mean Corpuscular Hemoglobin 32, Mean Corpuscular Hemoglobin Concent 32, Red Cell Distribution Width 13.7, Platelet Count 159, Mean Platelet Volume 11.4, Immature Granulocyte % (Auto) 1, Neutrophils (%) (Auto) 81, Lymphocytes (%) (Auto) 7, Monocytes (%) (Auto) 9, Eosinophils (%) (Auto) 1, Basophils (%) (Auto) 0, Neutrophils # (Auto) 7.3, Lymphocytes # (Auto) 0.7, Monocytes # (Auto) 0.9, Eosinophils # (Auto) 0.1, Basophils # (Auto) 0.0, Immature Granulocyte # (Auto) 0.1, Neutrophils % (Manual) 87, Lymphocytes % (Manual) 7, Monocytes % (Manual) 4, Eosinophils % (Manual) 1, Band Neutrophils 1, Blood Morphology Comment NORMAL, Sodium Level 145, Potassium Level 4.4, Chloride Level 107, Carbon Dioxide Level 29, Anion Gap 9, Blood Urea Nitrogen 23, Creatinine 1.05, Estimat Glomerular Filtration Rate 70, BUN/Creatinine Ratio 22, Glucose Level 137, Calcium Level 8.4, Corrected Calcium 9.1, Total Bilirubin 0.8, Aspartate Amino Transf (AST/SGOT) 16, Alanine Aminotransferase (ALT/SGPT) 11, Alkaline Phosphatase 47, Total Protein 5.0, Albumin 3.1 12/24/21 06:11: White Blood Count 10.5, Red Blood Count 3.32, Hemoglobin 10.7, Hematocrit 34, Mean Corpuscular Volume 102, Mean Corpuscular Hemoglobin 32, Mean Corpuscular Hemoglobin Concent 32, Red Cell Distribution Width 13.6, Platelet Count 179, Mean Platelet Volume 11.4, Immature Granulocyte % (Auto) 1, Neutrophils (%) (Auto) 77, Lymphocytes (%) (Auto) 8, Monocytes (%) (Auto) 11, Eosinophils (%) (Auto) 3, Basophils (%) (Auto) 1, Neutrophils # (Auto) 8.1, Lymphocytes # (Auto) 0.8, Monocytes # (Auto) 1.1, Eosinophils # (Auto) 0.3, Basophils # (Auto) 0.1, Immature Granulocyte # (Auto) 0.1, Sodium Level 144, Potassium Level 4.2, Chloride Level 106, Carbon Dioxide Level 28, Anion Gap 10, Blood Urea Nitrogen 39, Creatinine 1.68, Estimat Glomerular Filtration Rate 40, BUN/Creatinine Ratio 23, Glucose Level 114, Calcium Level 8.4, Corrected Calcium 9.0, Total Bilirubin 0.9, Aspartate Amino Transf (AST/SGOT) 39, Alanine Aminotransferase (ALT/SGPT) 17, Alkaline Phosphatase 45, Total Protein 5.3, Albumin 3.2, Procalcitonin 0.13 12/24/21 10:15: Lactic Acid Level 0.64 12/25/21 05:22: White Blood Count 10.0, Red Blood Count 3.21, Hemoglobin 10.2, Hematocrit 32, Mean Corpuscular Volume 101, Mean Corpuscular Hemoglobin 32, Mean Corpuscular Hemoglobin Concent 32, Red Cell Distribution Width 13.6, Platelet Count 167, Mean Platelet Volume 11.2, Immature Granulocyte % (Auto) 1, Neutrophils (%) (Auto) 77, Lymphocytes (%) (Auto) 6, Monocytes (%) (Auto) 13, Eosinophils (%) (Auto) 2, Basophils (%) (Auto) 0, Neutrophils # (Auto) 7.7, Lymphocytes # (Auto) 0.6, Monocytes # (Auto) 1.3, Eosinophils # (Auto) 0.2, Basophils # (Auto) 0.0, Immature Granulocyte # (Auto) 0.1, Sodium Level 145, Potassium Level 4.3, Chloride Level 110, Carbon Dioxide Level 26, Anion Gap 9, Blood Urea Nitrogen 43, Creatinine 1.21, Estimat Glomerular Filtration Rate 59, BUN/Creatinine Ratio 36, Glucose Level 122, Calcium Level 8.1, Corrected Calcium 8.8, Total Bilirubin 1.4, Aspartate Amino Transf (AST/SGOT) 67, Alanine Aminotransferase (ALT/SGPT) 22, Alkaline Phosphatase 43, Total Protein 5.1, Albumin 3.1 Discharge Home Medications: Active Scripts Active Melatonin 3 Mg Tablet 3 Mg PO HS PRN Ondansetron Odt (Ondansetron) 4 Mg Tab.rapdis 4 Mg PO Q6H PRN Senna Lax (Sennosides) 8.6 Mg Tablet 8.6 Mg PO BID Docusate Sodium 100 Mg Capsule 100 Mg PO BID Lactulose 20 Gram/30 Ml Solution 20 Gm PO BID PRN Xanax Tablet (Alprazolam) 0.25 Mg Tab 0.5 Mg PO Q3HR PRN HYDROcodone/APAP 5 MG/325 MG TAB (Acetaminophen/Hydrocodone Bitart) 1 Tab Tab 1 Ea PO Q4H PRN Cefdinir 300 Mg Capsule 300 Mg PO BID Memantine HCl 5 Mg Tablet 5 Mg PO BID LAST FILLED 08-19-2021 #60/30 DAY SUPPLY Ketoconazole 2 % Cream..g. 1 Applic TOP BID APPLY TO AFFECTED AREA ON EARS Clobetasol Propionate 0.05 % Cream..g. 1 Applic TOP BID PRN Ezetimibe 10 Mg Tablet 10 Mg PO 1900 Finasteride 5 Mg Tablet 5 Mg PO DAILY Vitamin D3 (Cholecalciferol (Vitamin D3)) 25 Mcg (1000 Unit) Tablet 25 Mcg PO BID Jossy-C 500 mg Tablet (Ascorbate Calcium/Bioflavonoid) 500 Mg-200 Mg Tablet 2 Each PO DAILY Tylenol Extra Strength (Acetaminophen) 500 Mg Tablet 500-1,000 Mg PO Q8H PRN Probiotic (L.acidoph & Paracasei,B.lactis) 10 Billion Cell Capsule 1 Each PO DAILY Doxazosin Mesylate 2 Mg Tablet 2 Mg PO 1900 Paroxetine HCl 20 Mg Tablet 20 Mg PO HS Flomax (Tamsulosin HCl) 0.4 Mg Cap 0.4 Mg PO 1800 TAKES 30 MINUTES AFTER DINNER Eliquis (Apixaban) 5 Mg Tablet 5 Mg PO BID Hold for 7 days until right arm stops bleeding, start 12/31/21 Amlodipine Besylate 10 Mg Tablet 10 Mg PO 1900 Instructions to patient/family Please see electronic discharge instructions given to patient. Diagnosis/Problems Diagnosis/Problems (1) AMS (altered mental status) (2) Dementia (3) CO2 retention Clinical Quality Measures DVT/VTE Risk/Contraindication: Contraindications-Pharm: Pt at low risk Other: right arm laceration bleed DONNA WEN DO Dec 25, 2021 12:54
== END 2021-12-25 16:05 | DRG 193 ==
LOC: CSD 16:14 → 4TH 12-22 13:33
PROVIDERS: ADMIT Internal Medicine; ATTEND Internal Medicine
PROC: 5A09357 Assistance with Respiratory Ventilation, Less than 24 Consecutive Hours, Continuous Positive Airway Pressure (ICD-10-PCS; principal; 2021-12-20)
PROC: 5A0935A Assistance with Respiratory Ventilation, Less than 24 Consecutive Hours, High Flow/Velocity Cannula (ICD-10-PCS; 2021-12-20)
DX: J18.9 Pneumonia, unspecified organism (principal); J96.01 Acute respiratory failure with hypoxia; J96.02 Acute respiratory failure with hypercapnia; N39.0 Urinary tract infection, site not specified; I48.21 Permanent atrial fibrillation; J44.0 Chronic obstructive pulmonary disease with (acute) lower respiratory infection; F03.90 Unspecified dementia, unspecified severity, without behavioral disturbance, psychotic disturbance, mood disturbance, and anxiety; S41.111A Laceration without foreign body of right upper arm, initial encounter; G47.33 Obstructive sleep apnea (adult) (pediatric); R41.0 Disorientation, unspecified; D64.9 Anemia, unspecified; Z66 Do not resuscitate; E86.0 Dehydration; R33.9 Retention of urine, unspecified; I10 Essential (primary) hypertension; E78.5 Hyperlipidemia, unspecified; N40.0 Benign prostatic hyperplasia without lower urinary tract symptoms; E66.9 Obesity, unspecified; Z68.33 Body mass index [BMI] 33.0-33.9, adult
CPT/HCPCS: 36415; 70450; 71045; 80053; 80061; 82805; 83605; 83735; 84145; 85007; 85025; 85027; 93005; 93306; 94660; 94761

== ENCOUNTER 2022-01-12 05:55 | Emergency (ER) | payer MEDICARE ==
[~2022-01-12 05:55] MED LIST changes: +ACET-2267 PO; +ACHD5005 PO; +ALPR.25T PO; +AMLO-251 PO; +APIX5TAB PO; +ASCO1TAB12 PO; +CHOL10004 PO; +CLOB15CR2 TOP; +DOCU100C37 PO; +DOXA2TAB2 PO; +EZET10TA49 PO; +FINA5TAB6 PO; +KETO15CR2 TOP; +L.AC1CAP6 PO; +LACT20SO2 PO; +LISI20TA26 PO; +MELA3TAB39 PO; +MEMA5TAB43 PO; +NUTRIFERON PO; +ONDA4TAB11 PO; +PARO20TA5 PO; +SNN187T PO; +TMSL.4C PO; +[UNRECOGNIZED DRUG - OTHER] PO
--- NOTE | 2022-01-12 06:38 | ED General ---
General Chief Complaint: Hip/Pelvic Problems Stated Complaint: RT HIP PAIN,SWOLLEN Nursing Triage Note: pt presents from nursing facility. facility called report stating pt was found to have swelling, pain and bruising to his right hip and right side of his body. nurse giving report stated she had been off for several days and just returned tonight and the bruising and swelling is new. unsure if pt has fallen or not. pt arrived via ems. obvious swelling to right hip, bruising in all stages of healing noted from right knee up the right side of the body to the neck. bandage on right arm was removed and found to have sutures in place that appear to have been there for sometime as there is new skin growth over the sutures. pt is a dementia pt and is unable to provide history. Source of Information: EMS, [facility] Records Exam Limitations: Physical Impairments (dementia) History of Present Illness Date Seen by Provider: Jan 12, 2022 Time Seen by Provider: 06:00 Initial Comments Patient is an 85-year-old male history of dementia, generalized weakness, hyperlipidemia, chronic respiratory disease who presents from [facility] chief complaint of concern for right hip "swelling" and pain. Patient has been a resident at [facility] for approximately 1 month. He was transferred there after a hospitalization at [facility] and subsequently [facility] inpatient rehab. He had previously had a fall with a laceration to the right elbow. He is chronically anticoagulated on Eliquis and apparently has had issues with bleeding on Eliquis in the past. He was noted to have significant bruising to the right flank according to Malissa, his nurse at [facility] on Wednesday, 2 days ago. Last night at bed checks at 11:30 PM nurses notes reflected that the patient was "fine". At 0 145 they noted what appeared to be increased bruising to his right side and he was complaining of some discomfort. At 0 320 he was given a drink of Gatorade and as he was repositioned in the bed he complained or seem to complain of right hip pain. Then again when aids went in to reposition him just prior to arrival they noted significant swelling to the right hip. Malissa, the nurse reported that normally he can stand and pivot. He is known I guess to get up and out of bed and onto the floor and then back into the bed on his own. She was not aware of any new falls. She states on her assessment this morning that his right lower extremity was not shortened or externally rotated or malpositioned. He did complain of a lot of pain with manipulation of the right hip however. There is also reports that the practitioner discontinued his Eliquis yesterday and started him on aspirin. He is noted to have a large wound over the right elbow that has had extensive bruising with it that was pre-existing his placement at [facility]. This wound is sutured. Per the nurses notes at the [facility] and he had a visit with Dr. Simon last week on . The wound previously had a drain in place but it had fallen out so he went there for a wound check. The nurses notes apparently reflect that he does not have a scheduled follow-up visit. They do also report that the skin was too "delicate" and friable to remove sutures. Patient's dementia precludes any history, review of systems to be obtained from himself. Allergies and Home Medications Allergies Coded Allergies: pregabalin (Verified Allergy, Unknown, 02/06/18) Patient Home Medication List Home Medication List Reviewed: Yes ALPRAZolam (Xanax Tablet) 0.25 Mg Tab, 0.5 MG PO Q3HR PRN for ANXIETY Prescribed by: DONNA WEN on 12/25/21 1250 Acetaminophen (Tylenol Extra Strength) 500 Mg Tablet, 500-1,000 MG PO Q8H PRN for PAIN-MILD (1-4) Prescribed by: DONNA WEN on 12/25/21 1248 Amlodipine Besylate (Amlodipine Besylate) 10 Mg Tablet, 10 MG PO 1900 Prescribed by: DONNA WEN on 12/25/21 1248 Apixaban (Eliquis) 5 Mg Tablet, 5 MG PO BID Prescribed by: DONNA WEN on 12/25/21 1248 Ascorbate Calcium/Bioflavonoid (Jossy-C 500 mg Tablet) 500 Mg-200 Mg Tablet, 2 EACH PO DAILY Prescribed by: DONNA WEN on 12/25/21 1248 Cefdinir (Cefdinir) 300 Mg Capsule, 300 MG PO BID Prescribed by: DONNA WEN on 12/25/21 1248 Cholecalciferol (Vitamin D3) (Vitamin D3) 25 Mcg (1000 Unit) Tablet, 25 MCG PO BID Prescribed by: DONNA WEN on 12/25/21 1248 Clobetasol Propionate (Clobetasol Propionate) 0.05 % Cream..g., 1 APPLIC TOP BID PRN for RASH Prescribed by: DONNA WEN on 12/25/21 124 Docusate Sodium (Docusate Sodium) 100 Mg Capsule, 100 MG PO BID Prescribed by: DONNA WEN on 12/25/21 124 Doxazosin Mesylate (Doxazosin Mesylate) 2 Mg Tablet, 2 MG PO 1900 Prescribed by: DONNA WEN on 12/25/21 124 Ezetimibe (Ezetimibe) 10 Mg Tablet, 10 MG PO 1900 Prescribed by: DONNA WEN on 12/25/21 124 Finasteride (Finasteride) 5 Mg Tablet, 5 MG PO DAILY Prescribed by: DONNA WEN on 12/25/21 124 Hydrocodone Bit/Acetaminophen (HYDROcodone/APAP 5 MG/325 MG TAB) 1 Tab Tab, 1 EA PO Q4H PRN for PAIN-MODERATE (5-7) Prescribed by: DONNA WEN on 12/25/21 1250 Ketoconazole (Ketoconazole) 2 % Cream..g., 1 APPLIC TOP BID Prescribed by: DONNA WEN on 12/25/21 124 L.acidoph & Paracasei,B.lactis (Probiotic) 10 Billion Cell Capsule, 1 EACH PO DAILY Prescribed by: DONNA WEN on 12/25/21 124 Lactulose (Lactulose) 20 Gram/30 Ml Solution, 20 GM PO BID PRN for CONSTIPATION- 4TH LINE Prescribed by: DONNA WEN on 12/25/21 124 Melatonin (Melatonin) 3 Mg Tablet, 3 MG PO HS PRN for SLEEP Prescribed by: DONNA WEN on 12/25/21 124 Memantine HCl (Memantine HCl) 5 Mg Tablet, 5 MG PO BID Prescribed by: DONNA WEN on 12/25/21 124 Ondansetron (Ondansetron Odt) 4 Mg Tab.rapdis, 4 MG PO Q6H PRN for NAUSEA/VOMITING-1ST LINE Prescribed by: DONNA WEN on 12/25/21 124 Paroxetine HCl (Paroxetine HCl) 20 Mg Tablet, 20 MG PO HS Prescribed by: DONNA WEN on 12/25/21 1248 Sennosides (Senna Lax) 8.6 Mg Tablet, 8.6 MG PO BID Prescribed by: DONNA WEN on 12/25/21 1248 Tamsulosin HCl (Flomax) 0.4 Mg Cap, 0.4 MG PO 1800 Prescribed by: DONNA WEN on 12/25/21 1248 Review of Systems Review of Systems Constitutional: see HPI Past Hzwjeym-Aarijy-Oglwhg Hx Patient Social History Tobacco Use?: No Substance use?: No Alcohol Use?: No Pt feels they are or have been: Unable to obtain Past Medical History Surgeries: Yes (HERNIA) Bowel Surgery Respiratory: No Cardiac: Yes Hypertension Dementia Genitourinary: Yes Prostate Problems Gastrointestinal: No Musculoskeletal: No Endocrine: Yes (HYPOGLYCEMIA) Cancer: No Psychosocial: No Family Medical History Other Conditions/Hx Physical Exam Vital Signs Vital Signs - First Documented 01/12/22 06:12 Pulse 89 Resp 20 B/P (MAP) 117/74 (88) Pulse Ox 97 O2 Delivery Nasal Cannula O2 Flow Rate 6.00 Capillary Refill : Height, Weight, BMI Height: 5'11.00" Weight: 240lbs. oz. 108.395391hg; 32.64 BMI Method:Stated General Appearance: No Apparent Distress, WD/WN Eyes: Bilateral Eye Normal Inspection, Bilateral Eye PERRL HEENT: PERRL/EOMI, Moist Mucous Membranes Neck: Full Range of Motion Respiratory: Chest Non Tender, Lungs Clear, Normal Breath Sounds, No Accessory Muscle Use, No Respiratory Distress Cardiovascular: Normal Peripheral Pulses, Irregularly Irregular Gastrointestinal: Normal Bowel Sounds, Non Tender, Soft Extremity: Normal Capillary Refill, Pedal Edema (2+ bilateral), Other (tenderness palpation right hip - lomited ROM; hematoma also right lateral prox humerus) Neurologic/Psychiatric: Alert, Normal Mood/Affect, Disoriented (Dementia at baseline - significant) Skin: Warm/Dry, Ecchymosis (Significant ecchymosis is noted about the right flank extending into the right back, down the right hip and into the perineum and posterior thigh with yellowing bruising noted into the posterior right calf.), Other (Patient has erythema and swelling of the right elbow with an apparent repaired laceration - 10cm in length. sub cutaneous tissue at the superior and inferior margins exposed without purulence or drainage. the area is red and warm.) Progress/Results/Core Measures Suspected Sepsis SIRS Temperature: Pulse: 89 Respiratory Rate: 20 Laboratory Tests 01/12/22 06:47: White Blood Count 7.6 Blood Pressure 117 /74 Mean: 88 Laboratory Tests 01/12/22 06:47: Creatinine 0.63, INR Comment 1.3, Platelet Count 390, Total Bilirubin 1.6H Results/Orders Lab Results Laboratory Tests Test 01/12/22 06:47 Range/Units White Blood Count 7.6 4.3-11.0 10^3/uL Red Blood Count 2.90 L 4.30-5.52 10^6/uL Hemoglobin 8.9 L 13.3-17.7 g/dL Hematocrit 29 L 40-54 % Mean Corpuscular Volume 100 H 80-99 fL Mean Corpuscular Hemoglobin 31 25-34 pg Mean Corpuscular Hemoglobin Concent 31 L 32-36 g/dL Red Cell Distribution Width 14.5 10.0-14.5 % Platelet Count 390 130-400 10^3/uL Mean Platelet Volume 9.8 9.0-12.2 fL Immature Granulocyte % (Auto) 3 % Neutrophils (%) (Auto) 71 42-75 % Lymphocytes (%) (Auto) 10 L 12-44 % Monocytes (%) (Auto) 10 0-12 % Eosinophils (%) (Auto) 5 0-10 % Basophils (%) (Auto) 1 0-10 % Neutrophils # (Auto) 5.4 1.8-7.8 10^3/uL Lymphocytes # (Auto) 0.8 L 1.0-4.0 10^3/uL Monocytes # (Auto) 0.8 0.0-1.0 10^3/uL Eosinophils # (Auto) 0.4 H 0.0-0.3 10^3/uL Basophils # (Auto) 0.1 0.0-0.1 10^3/uL Immature Granulocyte # (Auto) 0.2 H 0.0-0.1 10^3/uL Erythrocyte Sedimentation Rate 6 0-30 MM/HR Prothrombin Time 16.9 H 12.2-14.7 SEC INR Comment 1.3 0.8-1.4 Activated Partial Thromboplast Time 61 H 24-35 SEC Urine Color ORANGE Urine Clarity CLOUDY Urine pH 6.0 5-9 Urine Specific Waldron <=1.005 1.016-1.022 Urine Protein NEGATIVE NEGATIVE Urine Glucose (UA) NEGATIVE NEGATIVE Urine Ketones NEGATIVE NEGATIVE Urine Nitrite NEGATIVE NEGATIVE Urine Bilirubin NEGATIVE NEGATIVE Urine Urobilinogen 0.2 < = 1.0 MG/DL Urine Leukocyte Esterase NEGATIVE NEGATIVE Urine RBC (Auto) NEGATIVE NEGATIVE Urine RBC 0-2 /HPF Urine WBC RARE /HPF Urine Crystals PRESENT H /LPF Urine Calcium Oxalate Crystals FEW H /LPF Urine Amorphous Sediment MOD ROSEY URATES H /LPF Urine Bacteria NEGATIVE /HPF Urine Casts NONE /LPF Urine Mucus SMALL H /LPF Urine Culture Indicated NO Sodium Level 142 135-145 MMOL/L Potassium Level 4.1 3.6-5.0 MMOL/L Chloride Level 102 98-107 MMOL/L Carbon Dioxide Level 29 21-32 MMOL/L Anion Gap 11 5-14 MMOL/L Blood Urea Nitrogen 10 7-18 MG/DL Creatinine 0.63 0.60-1.30 MG/DL Estimat Glomerular Filtration Rate 94 BUN/Creatinine Ratio 16 Glucose Level 113 H 70-105 MG/DL Calcium Level 8.5 8.5-10.1 MG/DL Corrected Calcium 9.4 8.5-10.1 MG/DL Total Bilirubin 1.6 H 0.1-1.0 MG/DL Aspartate Amino Transf (AST/SGOT) 29 5-34 U/L Alanine Aminotransferase (ALT/SGPT) 34 0-55 U/L Alkaline Phosphatase 71 40-136 U/L Total Protein 5.1 L 6.4-8.2 GM/DL Albumin 2.9 L 3.2-4.5 GM/DL My Orders Orders - RICHY PIERRE MD Ed Iv/Invasive Line Start (01/12/22 06:16) Cbc With Automated Diff (01/12/22 06:16) Comprehensive Metabolic Panel (01/12/22 06:16) Protime With Inr (01/12/22 06:16) Partial Thromboplastin Time (01/12/22 06:16) Pelvis (01/12/22 06:16) Ua Culture If Indicated (01/12/22 06:16) Elbow, Right, 3 Views (01/12/22 06:16) Erythrocyte Sedimentation Rate (01/12/22 06:16) Chest 1 View, Ap/Pa Only (01/12/22 06:39) Ct Abdomen/Pelvis W (01/12/22 07:40) Iohexol Injection (Omnipaque 350 Mg/Ml 1 (01/12/22 08:00) Received Contrast (Hold Metformin- Contr (01/12/22 08:00) Ns (Ivpb) (Sodium Chloride 0.9% Ivpb Bag (01/12/22 08:00) Ed Admission (Communication) (01/12/22 10:22) Medications Given in ED Current Medications Medications Dose Ordered Sig/Pavan Route Start Time Stop Time Status Last Admin Dose Admin Iohexol 100 ml ONCE ONCE IV 01/12/22 08:00 01/12/22 08:27 DC 01/12/22 08:39 100 ML Sodium Chloride 100 ml ONCE ONCE IV 01/12/22 08:00 01/12/22 08:27 DC 01/12/22 08:39 100 ML Vital Signs/I&O 01/12/22 06:12 Pulse 89 Resp 20 B/P (MAP) 117/74 (88) Pulse Ox 97 O2 Delivery Nasal Cannula O2 Flow Rate 6.00 Capillary Refill : Blood Pressure Mean: 88 Progress Note #1: Time: 07:35 Progress Note Extensive discussion with the patient's at the bedside regarding the quality of care that her is receiving at [facility]. She states that he has had at least 3 falls that she has been made aware of since his admission just prior to December 29. She states that over the course of the last week she noted that he had not been changed out of his clothing for 3 days in a row. She is concerned that no one has been paying close enough attention to the developing ecchymosis/bruising to his right flank, abdomen, back and leg. She states he has had issues with being able to stand and pivot. Whereas he was ambulatory prior to the initial admission at [facility] at least a month ago. She states he is not getting the physical therapy and Occupational Therapy that he needs. She is concerned that he may have broken his right hip at some point. It would have had to have been in the last 2 weeks with one of his falls. She states his wheat catheter has been pulled out at least twice and there is no plan for follow up with urology and no one will tell her when it can be pulled. [facility] was [facility]. She has met resistance with speaking with multiple caregivers at the facility and administration as well as social work at [facility]. She feels like her concerns are not being addressed or heard. Progress Note #2: Time: 10:13 Progress Note I was concerned with the amount of ecchymoses to the right flank and extremity and his complaits of pain - that he may have intra abdominal injury/ retroperitoneal hemorrhage and possible fracture not identified on plain godfrey. His CT Abd/pelvis however is negative for this. We did identify a 12cm hematoma overlying the right trochanter of the hip. Case and care discussed with Dr. Wen. She states that since placement to the [facility] he would not be a candidate to bounce back to inpatient rehab. She kindly accepted him observation status to the medical floor here. Will evaluate for fall and his worsening anemia. She will also discuss with the further options and care likely including hospice. I will communicate all of this with the . Currently his vital signs are stable. He is communicating with his and does have intermittent clear speech with her. When I went to sit him up he is complaining of pain in his back. I reexamined his back and he has no midline tenderness. I suspect it is muscular secondary to his recent falls and the massive amount of ecchymosis that he has. She will put in que'd orders. Diagnostic Imaging Diagonstic Imaging: Xray Plain Films/CT/US/NM/MRI: chest Comments [facility] [place], [place] NAME: CLARISSE BROWN MED REC#: [id number] PT STATUS: REG ER : 04/29/1936 PHYSICIAN: RICHY PIERRE MD ADMIT DATE: 01/12/22/ER Draft Date of Exam:01/12/22 CHEST 1 VIEW, AP/PA ONLY INDICATION: Altered mental status. COMPARISON: 12/24/2021. TECHNIQUE: Single radiograph of the chest dated 01/12/2022. FINDINGS: The cardiac silhouette is enlarged, stable. Mild central pulmonary vascular congestion is again seen. Calcifications within the aortic arch. No focal pulmonary opacity. No pleural effusion. No pneumothorax. Mild scattered osseous degenerative changes without acute osseous abnormality. IMPRESSION: Persistent cardiomegaly with mild central pulmonary vascular congestion. Dictated on workstation # [id number] Dict: 01/12/22729 Trans: 01/12/2238 [id number] Interpreted by: LEIDY PAULA MD Electronically signed by: Diagonstic Imaging: Xray Plain Films/CT/US/NM/MRI: elbow Comments [facility] [place] NAME: CLARISSE BROWN MED REC#: [id number] PT STATUS: REG ER : 04/29/1936 PHYSICIAN: RICHY PIERRE MD ADMIT DATE: 01/12/22/ER Draft Date of Exam:01/12/22 ELBOW, RIGHT, 3 VIEWS INDICATION: Bruising, pain. COMPARISON: None available. TECHNIQUE: 3 radiographs of the right elbow dated 01/12/2022. FINDINGS: No acute fracture or dislocation. No destructive osseous process. Mild degenerative changes of the right elbow with mild osteophyte formation. Focal soft tissue swelling is noted involving the elbow, particularly dorsally. 5 mm hyperdensity within the soft tissues dorsal to the elbow. No large elbow joint effusion, though evaluation slightly limited secondary to positioning. IMPRESSION: No acute fracture with mild degenerative changes present. Soft tissue swelling about the elbow, particularly dorsally. Ill-defined 5 mm hyperdensity within this region may simply relate to an underlying soft tissue wound and irregularity, though foreign body not excluded. Limited evaluation for an underlying elbow joint effusion given positioning. Dictated on workstation # [id number] Dict: 01/12/2233 Trans: 01/12/2240 [id number] Interpreted by: LEIDY PAULA MD Electronically signed by: Meshagonstic Imaging: Xray Plain Films/CT/US/NM/MRI: pelvis Comments [facility] [place], [place] NAME: CLARISSE BROWN MED REC#: [id number] PT STATUS: REG ER : 04/29/1936 PHYSICIAN: RICHY PIERRE MD ADMIT DATE: 01/12/22/ER Draft Date of Exam:01/12/22 PELVIS INDICATION: Bruising, pain COMPARISON: None available TECHNIQUE: 3 radiographs of the pelvis dated 01/12/2022. FINDINGS: Surgical changes are seen overlying the left inguinal region. Hyperdensities possibly related to sclerosis versus overlying calcifications are seen involving the left aspect of the pubic symphysis, and bilateral supra-acetabular locations. The sacroiliac joints and pubic symphysis appear intact. No acute fracture or dislocation. No destructive osseous process. Transitional lumbosacral vertebral body. IMPRESSION: No acute fracture with vaoe-pw-kuteilwk scattered degenerative changes. Calcifications versus sclerosis overlying the pelvis bilaterally. This is of uncertain etiology. Findings could relate to multiple bone islands. Alternatively, findings could relate to prostatic calcifications with additional overlying soft tissue calcifications. Osseous sclerotic metastatic disease is an additional consideration. Recommend clinical correlation and comparison to prior imaging. If further evaluation is desired, a nuclear medicine bone scan would be recommended to evaluate for underlying abnormal osteoblastic activity. Dictated on workstation # [id number] Dict: 01/12/22 0731 Trans: 01/12/22 0740 CV [id number] Interpreted by: LEIDY PAULA MD Electronically signed by: Diagonstic Imaging: CT Comments [facility] [place] [place] NAME: CLARISSE BROWN [facility] REC#: [id number] PT STATUS: REG ER : 04/29/1936 PHYSICIAN: RICHY PIERRE MD ADMIT DATE: 01/12/22/ER Draft Date of Exam:01/12/22 CT ABDOMEN/PELVIS W PROCEDURE: CT abdomen and pelvis with contrast. TECHNIQUE: Multiple contiguous axial images were obtained through the abdomen and pelvis after administration of intravenous contrast. Auto Exposure Controls were utilized during the CT exam to meet ALARA standards for radiation dose reduction. All CT scans use one or more of the following dose optimizing techniques: automated exposure control, MA and/or KvP adjustment based on patient size and exam type or iterative reconstruction. INDICATION: Swelling, pain COMPARISON: CT of the chest dated 02/06/2018 FINDINGS: Small dependently layering pleural effusions are present with adjacent atelectasis. Cysts scattered throughout the liver are again identified, including dominant cyst within the dome of the liver measuring over 8 cm. The liver is otherwise unremarkable. The spleen is unremarkable. The adrenal glands appear stable without suspicious mass lesion. The pancreas is unremarkable. Punctate nonobstructing right renal calculi. Several hypodensities are identified within the right kidney, the majority of which are too small to completely characterize. One measuring 1.7 cm within the central aspect of the right kidney demonstrates a Hounsfield units of near 20 and is not definitively consistent with a simple renal cyst. Left renal cyst is present. No hydroureteronephrosis. Moderate vascular calcifications without aneurysmal dilatation of the abdominal aorta. Wheat catheter within a decompressed urinary bladder. A 5 mm calcification is noted within the urinary bladder near the left ureterovesicular junction. The prostate gland is mildly enlarged. Postsurgical changes of a left inguinal hernia repair. Postsurgical changes involving the cecum and ascending colon. No bowel obstruction or pneumatosis. Tiny fat-containing right inguinal hernia. No significant adenopathy, free air, or free fluid within the abdomen or pelvis. Prominent 11.6 x 12.1 cm hyperdensity is seen overlying the lateral right hip near the greater trochanter. This is predominantly within the subcutaneous tissues. This is associated with adjacent subcutaneous fat stranding. Transitional lumbosacral vertebral body is present. Sclerotic foci are seen within the left aspect of the pubic symphysis as well as within the bilateral acetabular roofs. Additional sclerotic focus is noted within the L1 vertebral body, though this was present in 2018. No acute fracture or dislocation. Scattered degenerative changes. IMPRESSION: 12 cm hyperdensity overlying the lateral aspect of the right hip within the subcutaneous tissues is felt to relate to a prominent hematoma. No definite acute pelvic fracture. However, if there remains high clinical concern, further evaluation with MRI considered as this is a more sensitive examination. Scattered regions of sclerosis within osseous structures. This may relate to bone islands, though sclerotic osseous metastatic disease should be considered. Recommend clinical correlation. Nuclear medicine bone scan would help to further evaluate. Indeterminate right renal hypodensity. This is not definitively consistent with a cyst based upon this examination. Renal ultrasound would help to further evaluate. Hepatic and renal cysts. Small dependently layering pleural effusions with adjacent atelectasis. Punctate nonobstructing right renal calculus. Probable stone within the urinary bladder. Dictated on workstation # [id number] Dict: 01/12/22 0839 Trans: 01/12/22 0859 [facility] [id number] Interpreted by: LEIDY PAULA MD Electronically signed by: Departure Communication (Admissions) Time/Spoke to Admitting Phy: 10:[address] Wen Impression Primary Impression: Hematoma of right hip Qualified Codes: S70.01XA - Contusion of right hip, initial encounter Additional Impressions: Anemia Qualified Codes: D64.9 - Anemia, unspecified Fall Qualified Codes: W19.XXXA - Unspecified fall, initial encounter Traumatic ecchymosis of abdominal wall Qualified Codes: S30.1XXA - Contusion of abdominal wall, initial encounter Traumatic ecchymosis of buttock Qualified Codes: S30.0XXA - Contusion of lower back and pelvis, initial encounter Traumatic ecchymosis of flank Qualified Codes: S30.1XXA - Contusion of abdominal wall, initial encounter Traumatic ecchymosis of right lower leg Qualified Codes: S80.11XA - Contusion of right lower leg, initial encounter Traumatic ecchymosis of right shoulder Qualified Codes: S40.011A - Contusion of right shoulder, initial encounter Disposition: 09 ADMITTED INPATIENT Condition: Stable Admissions Decision to Admit Reason: Admit from ER (Trauma) Decision to Admit/Date: Jan 12, 2022 Time/Decision to Admit Time: 10:18 Departure-Patient Inst. Referrals: MAGGI ALVARADO MD (PCP/Family) Primary Care Physician RICHY PIERRE MD Jan 12, 2022 06:38
[2022-01-12 06:50] LABS: BILIRUBIN,URINE NEGATIVE (NEGATIVE); CLARITY,URINE CLOUDY; COLOR,URINE ORANGE; GLUCOSE, URINE (UA) NEGATIVE (NEGATIVE); KETONES,URINE NEGATIVE (NEGATIVE); LEUKOCYTE ESTERASE ,URINE NEGATIVE (NEGATIVE); NITRITE,URINE NEGATIVE (NEGATIVE); PROTEIN,URINE NEGATIVE (NEGATIVE)
[2022-01-12 06:56] LABS: BASOPHILS # (AUTO) 0.1 10^3/uL (0.0-0.1); BASOPHILS % (AUTO) 1 % (0-10); EOSINOPHILS # (AUTO) 0.4 10^3/uL (0.0-0.3); EOSINOPHILS % (AUTO) 5 % (0-10); HEMATOCRIT 29 % (40-54); HEMOGLOBIN 8.9 g/dL (13.3-17.7); LYMPHOCYTES # (AUTO) 0.8 10^3/uL (1.0-4.0); LYMPHOCYTES % (AUTO) 10 % (12-44); MEAN CORPUSCULAR HEMOGLOBIN 31 pg (25-34); MEAN CORPUSCULAR HGB CONC 31 g/dL (32-36); MEAN CORPUSCULAR VOLUME 100 fL (80-99); MEAN PLATELET VOLUME 9.8 fL (9.0-12.2); MONOCYTES # (AUTO) 0.8 10^3/uL (0.0-1.0); MONOCYTES % (AUTO) 10 % (0-12); NEUTROPHILS # (AUTO) 5.4 10^3/uL (1.8-7.8); NEUTROPHILS % (AUTO) 71 % (42-75); PLATELET COUNT 390 10^3/uL (130-400); WHITE BLOOD COUNT 7.6 10^3/uL (4.3-11.0)
[2022-01-12 07:01] LABS: ALBUMIN 2.9 GM/DL (3.2-4.5); POTASSIUM 4.1 MMOL/L (3.6-5.0)
[2022-01-12 07:02] LABS: CALCIUM 8.5 MG/DL (8.5-10.1)
[2022-01-12 07:03] LABS: AMORPHOUS SEDIMENT,UR MOD AMOR URATES /LPF; BACTERIA,URINE NEGATIVE /HPF; CALCIUM OXALATE CRYSTALS,UR FEW /LPF; RBC,URINE 0-2 /HPF; TOTAL PROTEIN 5.1 GM/DL (6.4-8.2); WBC,URINE RARE /HPF
[2022-01-12 07:04] LABS: INR 1.3 (0.8-1.4); PROTHROMBIN TIME PATIENT 16.9 SEC (12.2-14.7)
[2022-01-12 07:05] LABS: BILIRUBIN,TOTAL 1.6 MG/DL (0.1-1.0)
[2022-01-12 07:07] LABS: CREATININE SERUM 0.63 MG/DL (0.60-1.30)
[2022-01-12 07:16] LABS: ERYTHROCYTE SEDIMENTATION RATE 6 MM/HR (0-30)
--- NOTE | 2022-01-12 07:39 | Diagnostic Imaging Report ---
INDICATION: Altered mental status. COMPARISON: 12/24/2021. TECHNIQUE: Single radiograph of the chest dated 01/12/2022. FINDINGS: The cardiac silhouette is enlarged, stable. Mild central pulmonary vascular congestion is again seen. Calcifications within the aortic arch. No focal pulmonary opacity. No pleural effusion. No pneumothorax. Mild scattered osseous degenerative changes without acute osseous abnormality. IMPRESSION: Persistent cardiomegaly with mild central pulmonary vascular congestion. Dictated by: Dictated on workstation # [id number]
--- NOTE | 2022-01-12 07:40 | Diagnostic Imaging Report ---
INDICATION: Bruising, pain COMPARISON: None available TECHNIQUE: 3 radiographs of the pelvis dated 01/12/2022. FINDINGS: Surgical changes are seen overlying the left inguinal region. Hyperdensities possibly related to sclerosis versus overlying calcifications are seen involving the left aspect of the pubic symphysis, and bilateral supra-acetabular locations. The sacroiliac joints and pubic symphysis appear intact. No acute fracture or dislocation. No destructive osseous process. Transitional lumbosacral vertebral body. IMPRESSION: No acute fracture with [id number] scattered degenerative changes. Calcifications versus sclerosis overlying the pelvis bilaterally. This is of uncertain etiology. Findings could relate to multiple bone islands. Alternatively, findings could relate to prostatic calcifications with additional overlying soft tissue calcifications. Osseous sclerotic metastatic disease is an additional consideration. Recommend clinical correlation and comparison to prior imaging. If further evaluation is desired, a nuclear medicine bone scan would be recommended to evaluate for underlying abnormal osteoblastic activity. Dictated by: Dictated on workstation # [id number]
--- NOTE | 2022-01-12 07:41 | Diagnostic Imaging Report ---
INDICATION: Bruising, pain. COMPARISON: None available. TECHNIQUE: 3 radiographs of the right elbow dated 01/12/2022. FINDINGS: No acute fracture or dislocation. No destructive osseous process. Mild degenerative changes of the right elbow with mild osteophyte formation. Focal soft tissue swelling is noted involving the elbow, particularly dorsally. 5 mm hyperdensity within the soft tissues dorsal to the elbow. No large elbow joint effusion, though evaluation slightly limited secondary to positioning. IMPRESSION: No acute fracture with mild degenerative changes present. Soft tissue swelling about the elbow, particularly dorsally. Ill-defined 5 mm hyperdensity within this region may simply relate to an underlying soft tissue wound and irregularity, though foreign body not excluded. Limited evaluation for an underlying elbow joint effusion given positioning. Dictated by: Dictated on workstation # [id number]
[2022-01-12] MEDS ORDERED: HOLD METFORMIN - RECEIVED CONTRAST 20 ML VIAL IV SCH (08:00)
[2022-01-12] MEDS ORDERED: NS 100 ML (IVPB) BAG IV ONE (08:00)
[2022-01-12] MEDS ORDERED: IOHEXOL 350 MG/ML 100 ML (OMNIPAQUE 350) VIAL IV ONE (08:00)
--- NOTE | 2022-01-12 09:00 | Diagnostic Imaging Report ---
PROCEDURE: CT abdomen and pelvis with contrast. TECHNIQUE: Multiple contiguous axial images were obtained through the abdomen and pelvis after administration of intravenous contrast. Auto Exposure Controls were utilized during the CT exam to meet ALARA standards for radiation dose reduction. All CT scans use one or more of the following dose optimizing techniques: automated exposure control, MA and/or KvP adjustment based on patient size and exam type or iterative reconstruction. INDICATION: Swelling, pain COMPARISON: CT of the chest dated 02/06/2018 FINDINGS: Small dependently layering pleural effusions are present with adjacent atelectasis. Cysts scattered throughout the liver are again identified, including dominant cyst within the dome of the liver measuring over 8 cm. The liver is otherwise unremarkable. The spleen is unremarkable. The adrenal glands appear stable without suspicious mass lesion. The pancreas is unremarkable. Punctate nonobstructing right renal calculi. Several hypodensities are identified within the right kidney, the majority of which are too small to completely characterize. One measuring 1.7 cm within the central aspect of the right kidney demonstrates a Hounsfield units of near 20 and is not definitively consistent with a simple renal cyst. Left renal cyst is present. No hydroureteronephrosis. Moderate vascular calcifications without aneurysmal dilatation of the abdominal aorta. Gomez catheter within a decompressed urinary bladder. A 5 mm calcification is noted within the urinary bladder near the left ureterovesicular junction. The prostate gland is mildly enlarged. Postsurgical changes of a left inguinal hernia repair. Postsurgical changes involving the cecum and ascending colon. No bowel obstruction or pneumatosis. Tiny fat-containing right inguinal hernia. No significant adenopathy, free air, or free fluid within the abdomen or pelvis. Prominent 11.6 x 12.1 cm hyperdensity is seen overlying the lateral right hip near the greater trochanter. This is predominantly within the subcutaneous tissues. This is associated with adjacent subcutaneous fat stranding. Transitional lumbosacral vertebral body is present. Sclerotic foci are seen within the left aspect of the pubic symphysis as well as within the bilateral acetabular roofs. Additional sclerotic focus is noted within the L1 vertebral body, though this was present in 2018. No acute fracture or dislocation. Scattered degenerative changes. IMPRESSION: 12 cm hyperdensity overlying the lateral aspect of the right hip within the subcutaneous tissues is felt to relate to a prominent hematoma. No definite acute pelvic fracture. However, if there remains high clinical concern, further evaluation with MRI considered as this is a more sensitive examination. Scattered regions of sclerosis within osseous structures. This may relate to bone islands, though sclerotic osseous metastatic disease should be considered. Recommend clinical correlation. Nuclear medicine bone scan would help to further evaluate, unless prior imaging is available to demonstrate multiple years of stability for these lesions. Indeterminate right renal hypodensity. This is not definitively consistent with a cyst based upon this examination. Renal ultrasound would help to further evaluate. Hepatic and renal cysts. Small dependently layering pleural effusions with adjacent atelectasis. Punctate nonobstructing right renal calculus. Probable stone within the urinary bladder. Dictated by: Dictated on workstation # [id number]
[2022-01-12 12:47] VITALS: BP 119/82
== END 2022-01-12 12:47 | disposition short-term general hospital (02) ==
LOC: EDUNIT# 05:55 → ER 05:56 → UNDOADMOB 10:24 → 4TH 10:24 → ER 12:47
DX: S70.01XA Contusion of right hip, initial encounter (principal); S70.11XA Contusion of right thigh, initial encounter; S30.0XXA Contusion of lower back and pelvis, initial encounter; S30.1XXA Contusion of abdominal wall, initial encounter; S40.011A Contusion of right shoulder, initial encounter; D64.9 Anemia, unspecified; M25.421 Effusion, right elbow; R60.0 Localized edema; F03.90 Unspecified dementia, unspecified severity, without behavioral disturbance, psychotic disturbance, mood disturbance, and anxiety; Z79.82 Long term (current) use of aspirin; Z79.01 Long term (current) use of anticoagulants; W19.XXXA Unspecified fall, initial encounter; Y92.129 Unspecified place in nursing home as the place of occurrence of the external cause
CPT/HCPCS: 36415; 71045; 72170; 73080; 74177; 80053; 81000; 85025; 85610; 85652; 85730